=== PATIENT | male | born 1945 | race Caucasian/White ===

== ENCOUNTER 2016-10-18 21:01 | Observation (INO) | payer MEDICARE, OTHER ==
[~2016-10-18] VITALS: Ht 185.4 cm; Wt 97.5 kg
[2016-10-18] MEDS ORDERED: NS IV 1000 ML 1,000 ML IV ONE ×2 (21:13→22:06)
[2016-10-18] MEDS ORDERED: ACETAMINOPHEN 500 MG TAB (TYLENOL) PO PRN ×2 (21:15→23:00)
[2016-10-18 21:20] LABS: BILIRUBIN,URINE NEGATIVE (NEGATIVE); KETONES,URINE 2+ (NEGATIVE); LEUKOCYTE ESTERASE ,URINE NEGATIVE (NEGATIVE); NITRITE,URINE NEGATIVE (NEGATIVE); PH,URINE 6 (5-9); PROTEIN,URINE 3+ (NEGATIVE); UROBILINOGEN,URINE NORMAL (NORMAL)
[2016-10-18 21:20] LABS: BASOPHILS % (AUTO) 0 % (0-10); EOSINOPHILS % (AUTO) 0 % (0-10); LYMPHOCYTES % (AUTO) 10 % (12-44); MEAN CORPUSCULAR HEMOGLOBIN 30 PG (25-34); MEAN CORPUSCULAR HGB CONC 36 G/DL (32-36); MEAN CORPUSCULAR VOLUME 83 FL (80-99); MEAN PLATELET VOLUME 10.4 FL (7.4-10.4); MONOCYTES # (AUTO) 1.5 X 10^3 (0.0-1.0); MONOCYTES % (AUTO) 15 % (0-12); NEUTROPHILS # (AUTO) 7.6 X 10^3 (1.8-7.8); NEUTROPHILS % (AUTO) 75 % (42-75); PLATELET COUNT 232 10^3/uL (130-400); RED BLOOD COUNT 6.14 10^6/uL (4.35-5.85); RED CELL DISTRIBUTION WIDTH 13.7 % (10.0-14.5); WHITE BLOOD COUNT 10.2 10^3/uL (4.3-11.0)
[2016-10-18 21:32] LABS: INR 1.1 (0.8-1.4); PROTHROMBIN TIME PATIENT 13.6 SEC (12.2-14.7)
--- NOTE | 2016-10-18 21:34 | ED General ---
General Chief Complaint: Fever-Adult/Adol Stated Complaint: BILAT LEG WEAKNESS/CONFUSION Nursing Triage Note: PT PRESENTS WITH FEVER, WEAKNESS, AND CONFUSION SINCE APPROX 1800 TONIGHT. REPORTS THAT PT WAS SEEN AT URGENT CARE EARLIER TODAY FOR COUGH. Nursing Sepsis Screen: Possible Severe Sepsis Risk Source of Information: Patient Exam Limitations: No Limitations History of Present Illness Time Seen by Provider: 21:07 Initial Comments Here with family who report that he has been extremely weak and confused tonight. Global weakness. Seen earlier at urgent care and initiated on Tessalon Perles and clarithromycin for a cough. On arrival here, patient answering questions appropriately but is globally weak. He did eat dinner tonight per the . Does complain of cough and sore throat. Timing/Duration: 1-2 Days, Getting Worse Severity: Moderate, Severe Associated Systoms: No Chest Pain, CoughNo Diaphoresis, Fever/ChillsNo Headaches, No Loss of Appetite, MalaiseNo Nausea/Vomiting, No Rash, No Seizure , Shortness of AirNo Syncope, Weakness Allergies and Home Medications Allergies Coded Allergies: No Known Drug Allergies (Unverified , 10/18/16) Constitutional: see HPI chills fever weakness EENTM: nose congestion see HPI Respiratory: see HPI cough short of breath Cardiovascular: see HPINo chest pain, palpitations Gastrointestinal: no symptoms reported Genitourinary: no symptoms reported Musculoskeletal: no symptoms reported Skin: no symptoms reported Psychiatric/Neurological: See HPI All Other Systems Reviewed Negative Unless Noted: Yes Past Cgbpnyd-Jxqecp-Iffaky Hx Patient Social History Alcohol Use: Occasionally Uses Recreational Drug Use: No Smoking Status: Former Smoker Type Used: Cigarettes Recent Foreign Travel: No Contact w/Someone Who Travel: No Recent Infectious Disease Expo: No Recent Hopitalizations: No Physical Abuse Screen: No Sexual Abuse: No Seasonal Allergies Seasonal Allergies: No Surgeries HX Surgeries: Yes Surgeries: Orthopedic Respiratory Hx Respiratory Disorders: No Cardiovascular Hx Cardiac Disorders: No Neurological Hx Neurological Disorders: No Genitourinary Hx Genitourinary Disorders: No Gastrointestinal Hx Gastrointestinal Disorders: No Musculoskeletal Hx Musculoskeletal Disorders: No Endocrine Hx Endocrine Disorders: No HEENT HX ENT Disorders: No Cancer Hx Cancer: No Psychosocial Hx Psychiatric Problems: No Reviewed Nursing Assessment Reviewed/Agree w Nursing PMH: Yes Family Medical History Significant Family History: No Pertinent Family Hx Physical Exam-Suspected Sepsis Physical Exam Vital Signs Vital Sign - Last 12Hours 10/18/16 10/18/16 21:14 21:19 Temp 104.3 Pulse 132 Resp 24 B/P 121/76 Pulse Ox 94 O2 Delivery Room Air O2 Flow Rate 2 Capillary Refill : Less Than 3 Seconds Blood Pressure Mean: 91 General Appearance: Moderate Distress HEENT: PERRL/EOMI Pharyngeal Erythema Other (moderate bilateral nasal congestion with erythema and clear rhinorrhea) Neck: Full Range of Motion Normal Inspection Non Tender Supple Respiratory: No Accessory Muscle Use No Respiratory Distress Crackles (left base)No Wheezing Cardiovascular: No Murmur Tachycardia Gastrointestinal: Non Tender Soft Back: Normal Inspection No CVA Tenderness No Vertebral Tenderness Extremity: Normal Capillary Refill Normal Range of Motion Non Tender No Calf Tenderness Other (weakness bilateral lower extremities) Neurologic/Psychiatric: Alert Oriented x3 Normal Mood/Affect Abnormal Gait ( weakness)No Facial Droop, Motor Weakness Skin: warm/dryNo pallor, No rash, No ulcerations on exposed areas Progress/Results/Core Measures Suspected Sepsis Recent Fever Within 48 Hours: Yes Infection Criteria Present: Suspected New Infection New/Unexplained Altered Menta: Yes Sepsis Screen: Possible Severe Sepsis Risk Sepsis Diagnosis: SIRS Temperature:104.3 Pulse: 132 Respiratory Rate: 24 Laboratory Tests 10/18/16 21:05: White Blood Count 10.2 Blood Pressure 121 /76 Mean: 91 Laboratory Tests 10/18/16 21:05: Creatinine 1.12, INR Comment 1.1, Platelet Count 232, Total Bilirubin 0.4 Results/Orders Lab Results Laboratory Tests Test 10/18/16 21:05 10/18/16 21:12 Range/Units Activated Partial Thromboplast Time 35 24-35 SEC Alanine Aminotransferase (ALT/SGPT) 33 0-55 U/L Albumin 4.1 3.2-4.5 G/DL Alkaline Phosphatase 80 40-136 U/L Anion Gap 13 5-14 MMOL/L Aspartate Amino Transf (AST/SGOT) 32 5-34 U/L BUN/Creatinine Ratio 12 Basophils # (Auto) 0.0 0.0-0.1 10^3/uL Basophils (%) (Auto) 0 0-10 % Blood Urea Nitrogen 13 7-18 MG/DL Calcium Level 8.6 8.5-10.1 MG/DL Carbon Dioxide Level 19 L 21-32 MMOL/L Chloride Level 99 98-107 MMOL/L Creatinine 1.12 0.60-1.30 MG/DL Eosinophils # (Auto) 0.0 0.0-0.3 10^3/uL Eosinophils (%) (Auto) 0 0-10 % Estimat Glomerular Filtration Rate > 60 Glucose Level 199 H 70-105 MG/DL Hematocrit 51 40-54 % Hemoglobin 18.1 H 13.3-17.7 G/DL INR Comment 1.1 0.8-1.4 Lactic Acid Level 2.4 *H 0.5-2.0 MMOL/L Lymphocytes # (Auto) 1.0 1.0-4.0 X 10^3 Lymphocytes (%) (Auto) 10 L 12-44 % Mean Corpuscular Hemoglobin 30 25-34 PG Mean Corpuscular Hemoglobin Concent 36 32-36 G/DL Mean Corpuscular Volume 83 80-99 FL Mean Platelet Volume 10.4 7.4-10.4 FL Monocytes # (Auto) 1.5 H 0.0-1.0 X 10^3 Monocytes (%) (Auto) 15 H 0-12 % Neutrophils # (Auto) 7.6 1.8-7.8 X 10^3 Neutrophils (%) (Auto) 75 42-75 % Platelet Count 232 130-400 10^3/uL Potassium Level 4.2 3.6-5.0 MMOL/L Prothrombin Time 13.6 12.2-14.7 SEC Red Blood Count 6.14 H 4.35-5.85 10^6/uL Red Cell Distribution Width 13.7 10.0-14.5 % Sodium Level 131 L 135-145 MMOL/L Total Bilirubin 0.4 0.1-1.0 MG/DL Total Protein 7.5 6.4-8.2 G/DL White Blood Count 10.2 4.3-11.0 10^3/uL Urine Bacteria NONE /HPF Urine Bilirubin NEGATIVE NEGATIVE Urine Casts NONE /LPF Urine Clarity SLIGHTLY CLOUDY Urine Color YELLOW Urine Crystals NONE /LPF Urine Culture Indicated NO Urine Glucose (UA) 4+ H NEGATIVE Urine Ketones 2+ H NEGATIVE Urine Leukocyte Esterase NEGATIVE NEGATIVE Urine Mucus NEGATIVE /LPF Urine Nitrite NEGATIVE NEGATIVE Urine Protein 3+ H NEGATIVE Urine RBC 5-10 H /HPF Urine RBC (Auto) 4+ H NEGATIVE Urine Specific [place] 1.015 L 1.016-1.022 Urine Urobilinogen NORMAL NORMAL MG/DL Urine WBC NONE /HPF Urine pH 6 5-9 Micro Results Microbiology 10/18/16 Influenza Types A,B Antigen (DAVONTE) - Final, Complete My Orders Orders-ERIKA DE LA ROSA MD Influenza A And B Antigens (10/18/16 21:13) Cbc With Automated Diff (10/18/16 21:13) Comprehensive Metabolic Panel (10/18/16 21:13) Lactic Acid Analyzer (10/18/16 21:13) Blood Culture (10/18/16 21:13) Sputum Culture (10/18/16 21:13) Ua Culture If Indicated (10/18/16 21:13) Protime With Inr (10/18/16 21:13) Partial Thromboplastin Time (10/18/16 21:13) Chest 1 View, Ap/Pa Only (10/18/16 21:13) O2 (10/18/16 21:13) Acetaminophen Tablet (Tylenol Tablet) (10/18/16 21:15) Saline Lock/Iv-Start (10/18/16 21:13) Saline Lock/Iv-Start (10/18/16 21:13) Ekg Tracing (10/18/16 21:13) Vital Signs Adult Sepsis Patie Q1HR (10/18/16 21:13) Remove Rings In Anticipation O (10/18/16 21:13) Ns Iv 1000 Ml (Sodium Chloride 0.9%) (10/18/16 21:13) Oseltamivir 75 Mg (10's) Caps (Tamiflu 7 (10/19/16 09:00) Rx-Oseltamivir Caps (Rx-Tamiflu Caps) (10/18/16 21:51) Ns Iv 1000 Ml (Sodium Chloride 0.9%) (10/18/16 22:06) Medications Given in ED Current Medications Medications Dose Ordered Sig/Trinity Route Start Time Stop Time Status Last Admin Dose Admin Acetaminophen 1000 mg 1,000 mg ONCE PRN PO 10/18/16 21:15 10/18/16 21:27 DC 10/18/16 21:27 1,000 MG Oseltamivir Phosphate 75 mg STK-MED ONCE PO 10/18/16 21:51 10/18/16 22:00 DC 10/18/16 22:04 75 MG Sodium Chloride 1,000 ml @ 0 mls/hr Q0M ONCE IV 1/24/17 21:13 10/18/16 21:16 DC 10/18/16 21:27 0 MLS/HR Vital Signs/I&O Vital Sign - Last 12Hours 10/18/16 10/18/16 21:14 21:19 Temp 104.3 Pulse 132 Resp 24 B/P 121/76 Pulse Ox 94 97 O2 Delivery Room Air Nasal Cannula O2 Flow Rate 2 Capillary Refill : Less Than 3 Seconds Blood Pressure Mean: 91 Progress Note : Progress Note Seen and evaluated. IV, labs, UA, EKG and chest x-ray ordered. Influenza screen done. Patient initiated on O2 as his O2 saturation was 93 percent on room air. This did improve to 95-96 percent on 2 L. Blood cultures and lactic acid ordered. Monitor patient. 2200: Influenza positive. Tamiflu initiated. Case discussed with Dr. NAJERA. He accepts patient for admission, observation status. Repeat normal saline 1 L bolus. We will give 1 more in liter on the floor at 200 mL an hour and then decreased to 150 hour after that. Patient has nodule appearance in the right upper lobe. This was discussed with patient and family. It was also discussed with Dr. NAJERA. He will need either further evaluation inpatient or in the outpatient setting. Patient and family verbalize understanding. ECG Initial ECG Impression Date: Oct 18, 2016 Initial ECG Impression Time: 21:19 Initial ECG Rate: 126 Initial ECG Rhythm: S.Tach Comment Sinus tachycardia with left axis deviation. No previous available for comparison. No evidence of ST elevation AR. Interpreted by me. Diagnostic Imaging Diagonstic Imaging: Xray Plain Films/CT/US/NM/MRI: chest Comments NAME: AMAN MARTIN [facility] REC#: [id number] PT STATUS: REG ER : 1945 PHYSICIAN: ERIKA DE LA ROSA MD ADMIT DATE: 10/18/16/ER Draft Date of Exam:10/18/16 CHEST 1 VIEW, AP/PA ONLY INDICATION: Fever, weakness, and confusion EXAMINATION: Chest 10/18/2016 FINDINGS: There are slightly coarsened bilateral interstitial markings throughout the mid and lower lungs. The heart is towards the upper limits of normal in size and there is pulmonary vascular congestion. There is a vague density superimposed upon the right anterior first rib end. No effusions. No pneumothorax. IMPRESSION: 1. Suspected mild pulmonary edema 2. Vague rounded density in the right upper lung could be superimposed structures but if there are no priors available for comparison, short-term interval followup or even CT on a nonemergent basis could exclude a nodule. Dictated on workstation # [id number] Dict: 10/18/16 2144 Trans: 10/18/16 2150 [id number] Interpreted by: HOLLY VAZQUEZ MD Electronically signed by: Departure Communication Time/Spoke to Admitting Phy: 21:55 Impression Impression: Primary Impression: Influenza Additional Impression: Dehydration Disposition: ADMITTED INPATIENT Condition: Stable Decision to Admit Reason: Admit from ER (General) Decision to Admit/Date: Oct 18, 2016 Time/Decision to Admit Time: 21:55 Departure-Patient Inst. Referrals: NO,LOCAL PHYSICIAN (PCP/Family) Primary Care Physician ERIKA DE LA ROSA MD Oct 18, 2016 21:34
[2016-10-18 21:40] LABS: ALANINE AMINOTRANSFERASE 33 U/L (0-55); ALBUMIN 4.1 G/DL (3.2-4.5); ANION GAP 13 MMOL/L (5-14); ASPARTATE AMINO TRANSFERASE 32 U/L (5-34); BILIRUBIN,TOTAL 0.4 MG/DL (0.1-1.0); BLOOD UREA NITROGEN 13 MG/DL (7-18); BUN/CREATININE RATIO 12; CALCIUM 8.6 MG/DL (8.5-10.1); CARBON DIOXIDE 19 MMOL/L (21-32); CHLORIDE 99 MMOL/L (98-107); CREATININE SERUM 1.12 MG/DL (0.60-1.30); GFR ESTIMATED > 60; GLUCOSE 199 MG/DL (70-105); POTASSIUM 4.2 MMOL/L (3.6-5.0); SODIUM 131 MMOL/L (135-145); TOTAL PROTEIN 7.5 G/DL (6.4-8.2)
--- NOTE | 2016-10-18 21:50 | Diagnostic Imaging Report ---
INDICATION: Fever, weakness, and confusion EXAMINATION: Chest 10/18/2016 FINDINGS: There are slightly coarsened bilateral interstitial markings throughout the mid and lower lungs. The heart is towards the upper limits of normal in size and there is pulmonary vascular congestion. There is a vague density superimposed upon the right anterior first rib end. No effusions. No pneumothorax. IMPRESSION: 1. Suspected mild pulmonary edema 2. Vague rounded density in the right upper lung could be superimposed structures but if there are no priors available for comparison, short-term interval followup or even CT on a nonemergent basis could exclude a nodule. Dictated by: Dictated on workstation # [id number]
[2016-10-18] MEDS ORDERED: RX-OSELTAMIVIR 75 MG (TAMIFLU) BOX OF 10 PO ONE (21:51)
[2016-10-18 23:00] VITALS: BP 123/75
[2016-10-18] MEDS ORDERED: ONDANSETRON 4 MG/2 ML (SDV) Z0FRAN IV PRN (23:00)
[2016-10-18] MEDS ORDERED: IBUPROFEN 800 MG (MOTRIN) TAB PO PRN (23:00)
[2016-10-18] MEDS ORDERED: CATHETER FLUSH 10 ML SYR IV PRN (23:15)
[2016-10-19] MEDS: NS IV 1000 ML 1,000 ML IV SCH ×3 (00:01→14:38)
[2016-10-19 00:37] VITALS: BP 133/62
[2016-10-19 05:20] LABS: BASOPHILS % (AUTO) 0 % (0-10); EOSINOPHILS % (AUTO) 0 % (0-10); LYMPHOCYTES % (AUTO) 23 % (12-44); MEAN CORPUSCULAR HEMOGLOBIN 29 PG (25-34); MEAN CORPUSCULAR HGB CONC 35 G/DL (32-36); MEAN CORPUSCULAR VOLUME 84 FL (80-99); MEAN PLATELET VOLUME 10.5 FL (7.4-10.4); MONOCYTES # (AUTO) 1.3 X 10^3 (0.0-1.0); MONOCYTES % (AUTO) 15 % (0-12); NEUTROPHILS # (AUTO) 5.2 X 10^3 (1.8-7.8); NEUTROPHILS % (AUTO) 61 % (42-75); PLATELET COUNT 207 10^3/uL (130-400); RED BLOOD COUNT 5.38 10^6/uL (4.35-5.85); RED CELL DISTRIBUTION WIDTH 13.7 % (10.0-14.5); WHITE BLOOD COUNT 8.5 10^3/uL (4.3-11.0)
[2016-10-19 05:45] LABS: ALANINE AMINOTRANSFERASE 28 U/L (0-55); ALBUMIN 3.3 G/DL (3.2-4.5); ANION GAP 10 MMOL/L (5-14); ASPARTATE AMINO TRANSFERASE 32 U/L (5-34); BILIRUBIN,TOTAL 0.4 MG/DL (0.1-1.0); BLOOD UREA NITROGEN 11 MG/DL (7-18); BUN/CREATININE RATIO 13; CALCIUM 7.5 MG/DL (8.5-10.1); CARBON DIOXIDE 20 MMOL/L (21-32); CHLORIDE 103 MMOL/L (98-107); CREATININE SERUM 0.82 MG/DL (0.60-1.30); GFR ESTIMATED > 60; GLUCOSE 98 MG/DL (70-105); POTASSIUM 3.6 MMOL/L (3.6-5.0); SODIUM 133 MMOL/L (135-145); TOTAL PROTEIN 5.8 G/DL (6.4-8.2)
[2016-10-19] MEDS: CATHETER FLUSH 10 ML SYR IV SCH ×3 (05:45→20:10)
[2016-10-19 05:46] VITALS: BP 126/60
[2016-10-19] MEDS: inSUlin (REGULAR) HUMAN 1 UNIT/0.01 ML (CHARGE PER UNIT) SC SCH ×2 (06:00→11:00)
[2016-10-19 08:00] VITALS: BP 151/83
[2016-10-19] MEDS ORDERED: FLU TRIvalent (5 YOA+) 2016-17 (AFLURIA) 0.5 ML IM ONE (08:00)
[2016-10-19] MEDS ORDERED: DIPH25CA79 PO (08:01)
[2016-10-19] MEDS: OSELTAMIVIR 75 MG (TAMIFLU) BOX OF 10 PO SCH ×2 (08:42→21:49)
[2016-10-19] MEDS ORDERED: OSELTAMIVIR 75 MG (TAMIFLU) BOX OF 10 PO SCH (09:00)
--- NOTE | 2016-10-19 10:29 | History & Physical-Hospitalist ---
HPI History of Present Illness: HPI/Chief Complaint CC: Cough with fever HPI: This is a 71yoWM pt that was seen at Urgent Care early yesterday. Was diagnosed with bronchitis and placed on antibiotic for cough but then he worsened with severe weakness and confusion and arrived at ER. Pt was found to have influenza A. 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 Patient Interview: Pt states that he feels a little better today, but is still coughing regularly. Pt states that he is coughing up mucus. Pt denies having any pain. Pt does not have a PCP. Pt denies having any previous operations or allergies. Pt denies smoking or drinking ETOH. Pt quit smoking 30 years ago. 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 Scribed by Ced Tavares under the direct supervision of Dr. Peres. Source: patient Exam Limitations: clinical condition (very [place] and appears to have protocol) Date Seen 10/19/16 Attending Physician Ino Phipps MD PCP No,Local Physician Referring Physician Date of Admission Oct 18, 2016 at 22:27 Home Medications & Allergies Home Medications Reviewed patient Home Medication Reconciliation Form Allergies Coded Allergies: No Known Drug Allergies (Unverified , 10/18/16) Past Luhsebb-Mqxvbo-Lvbbam Hx Patient Social History Marrital Status: Employed/Student: retired Alcohol Use: Occasionally Uses Recreational Drug Use: No Smoking Status: Former Smoker Type Used: Cigarettes Physical Abuse Screen: No Sexual Abuse: No Recent Foreign Travel: No Contact w/other who traveled: No Recent Hopitalizations: No Recent Infectious Disease Expo: No Seasonal Allergies Seasonal Allergies: No Surgeries HX Surgeries: Yes Surgeries: Orthopedic Respiratory Hx Respiratory Disorders: No Cardiovascular Hx Cardiovascular Disorders: No Neurological Hx Neurological Disorders: No Genitourinary Hx Genitourinary Disorders: No Gastrointestinal Hx Gastrointestinal Disorders: No Musculoskeletal Hx Musculoskeletal Disorders: No Endocrine Hx Endocrine Disorders: No HEENT HX ENT Disorders: No Cancer Hx Cancer: No Psychosocial Hx Psychiatric Problems: No Reviewed Nursing Assessment Reviewed/Agree w Nursing PMH: Yes Family Medical History Significant Family History: No Pertinent Family Hx Family Hx: Diabetes mellitus 19 MOTHER FH: cancer G8 BROTHER Myocardial infarction 19 FATHER Review of Systems Constitutional: see HPI dizziness fever malaise weakness weight loss EENTM: no symptoms reported Respiratory: cough dyspnea on exertion short of breath Cardiovascular: no symptoms reported Gastrointestinal: no symptoms reported Genitourinary: no symptoms reported Musculoskeletal: no symptoms reported Skin: no symptoms reported Psychiatric/Neurological: No Symptoms Reported All Other Systems Reviewed Negative Unless Noted: Yes Physical Exam Physical Exam Vital Signs Vital Sign - Last 12Hours 10/18/16 10/18/16 21:14 21:19 Temp 104.3 Pulse 132 Resp 24 B/P 121/76 Pulse Ox 94 O2 Delivery Room Air O2 Flow Rate 2 Capillary Refill : Less Than 3 Seconds General Appearance: No Apparent Distress WD/WN Chronically ill Eyes: Bilateral Eye Normal Inspection, Bilateral Eye PERRL HEENT: PERRL/EOMI Normal ENT Inspection Pharynx Normal Neck: Full Range of Motion Normal Inspection Non Tender Supple Carotid Bruit Respiratory: Chest Non Tender No Respiratory Distress Crackles Decreased Breath Sounds Rales Wheezing Cardiovascular: Regular Rate, Rhythm No Edema No Gallop No JVD No Murmur Normal Peripheral Pulses Gastrointestinal: Normal Bowel Sounds No Organomegaly No Pulsatile Mass Non Tender Soft Back: Normal Inspection No CVA Tenderness No Vertebral Tenderness Extremity: Normal Capillary Refill Normal Inspection Normal Range of Motion Non Tender No Calf Tenderness No Pedal Edema Neurologic/Psychiatric: Alert Oriented x3 No Motor/Sensory Deficits Depressed Affect Skin: Normal Color Warm/Dry Lymphatic: No Adenopathy Results Results/Procedures Lab Laboratory Tests 10/18/16 21:05 10/19/16 04:33 Assessment/Plan Admission Diagnosis Assessment: Acute influenza A with sepsis, fever and cough placed on Tamaflu Hyponatremia likely due to influenza Elevated lactic acid Lung mass and former smoker Dehydration with Hgb 18.1 now resolved Assessment and Plan Plan: CT chest with contrast due to lung mass Fluid restriction Check labs SCD's Tamiflu Clinical Quality Measures DVT/VTE Risk/Contraindication: Risk Factor Score Per Nursin RFS Level Per Nursing on Admit: 4+=Very High LANEDN PERES DO Oct 19, 2016 10:29
[2016-10-19] MEDS ORDERED: IOHEXOL 350 MG/ML 100 ML (OMNIPAQUE 350) VIAL IV ONE (12:15)
[2016-10-19] MEDS ORDERED: NS 100 ML (IVPB) BAG IV ONE (12:15)
--- NOTE | 2016-10-19 13:54 | Diagnostic Imaging Report ---
PROCEDURE: CT chest with contrast only. TECHNIQUE: Multiple contiguous axial images were obtained through the chest after administration of intravenous contrast. INDICATION: Congestion, cough, questionable right upper lobe nodule versus superimposition artifact. CT performed as further evaluation. FINDINGS: There is asymmetric ossifications of the right greater than left distal first rib costal cartilage believed to account for the radiographic density in question. There was no evidence for lung mass. There are no findings of acute pneumonia. No bronchiectasis. The central airways however are slightly thickened and may reflect an element of bronchitis or viral pattern. No alveolar consolidation. No suspicious lung mass. No hilar, mediastinal or axillary lymphadenopathy. There is no pleural or pericardial effusion. No acute soft tissue or osseous chest wall disease. IMPRESSION: Asymmetric first rib costochondral calcifications on the right are believed to account for the radiographic density. No evidence for suspicious lung mass or adenopathy. There is some slight thickening of the central airways raises the question of an element of bronchial inflammation but no willian pneumonia. Dictated by: Dictated on workstation # [id number]
[2016-10-19 16:40] VITALS: BP 127/72
[2016-10-20] VITALS: BP 136/70
[2016-10-20] MEDS: NS IV 1000 ML 1,000 ML IV SCH (02:18)
[2016-10-20] MEDS: CATHETER FLUSH 10 ML SYR IV SCH (06:00)
[2016-10-20 08:00] VITALS: BP 132/77
[2016-10-20] MEDS: OSELTAMIVIR 75 MG (TAMIFLU) BOX OF 10 PO SCH (08:37)
[2016-10-20] MEDS ORDERED: OSLT75C PO (09:33)
--- NOTE | 2016-10-20 09:35 | Discharge Instructions ---
Discharge Instructions Discharge Medications New, Converted or Re-Newed RX: Other New Medications: Oseltamivir Phosphate (Tamiflu) 75 Mg Cap 0 EACH PO BID Days 4 CAP Continued Medications: Diphenhydramine HCl (Benadryl) 25 Mg Capsule 25 MG PO HS CAP Patient Instructions Goal/Follow Up Appt: Obtain primary care provider for follow up care Activity & Diet Discharge Diet: No Restrictions Activity as Tolerated: Yes LANDEN BRUMFIELD DO Oct 20, 2016 09:35
--- NOTE | 2016-10-20 09:36 | Discharge Summary-Hospitalist ---
Diagnosis/Chief Complaint Date of Admission Oct 18, 2016 at 22:50 Date of Discharge Discharge Date: Oct 20, 2016 Admission Diagnosis Assessment: Acute influenza A with sepsis, fever and cough placed on Tamaflu Hyponatremia likely due to influenza Elevated lactic acid Lung mass and former smoker Dehydration with Hgb 18.1 now resolved Discharge Diagnosis Assessment: Acute influenza A with sepsis, fever and cough placed on Tamaflu Hyponatremia likely due to influenza Elevated lactic acid Lung mass and former smoker Dehydration with Hgb 18.1 now resolved Plan: CT chest with contrast due to lung mass Fluid restriction Check labs SCD's Tamiflu Reason Hospital Visit/Course CC: Cough with fever HPI: This is a 71yoWM pt that was seen at Urgent Care early yesterday. Was diagnosed with bronchitis and placed on antibiotic for cough but then he worsened with severe weakness and confusion and arrived at ER. Pt was found to have influenza A. 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 Patient Interview: Pt states that he feels a little better today, but is still coughing regularly. Pt states that he is coughing up mucus. Pt denies having any pain. Pt does not have a PCP. Pt denies having any previous operations or allergies. Pt denies smoking or drinking ETOH. Pt quit smoking 30 years ago. 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 Scribed by Ced Tavares under the direct supervision of Dr. Peres. Note from 10/20/16: Patient doing very well no longer feverish or coughing as frequent Tamiflu will be completed at discharge Eating and drinking well and bowels are moving Very of hard of hearing making it a little more difficult for communication Declines primary care provider establishment No fever, vital signs stable, pleasant, oriented 3, very hard of hearing Regular rate and rhythm, third on station bilaterally no wheezing noted today No edema Hospital course: Patient had an uneventful hospital course he was admitted for acute influenza A and fever with hyponatremia and confusion and weakness. CT scan of the lung region was completed due to questionable mass on chest x-ray but that revealed no evidence of any mass or infiltrate. Overall he did well through the entire hospital course was maintain on IV fluids for dehydration on admission and overall was able to be discharged in improved status on 10/20/16. Discharge Summary Discharge Physical Examination Allergies: Coded Allergies: No Known Drug Allergies (Unverified , 10/18/16) Vitals & I&Os Vital Signs Date Time Temp Pulse Resp B/P Pulse Ox O2 Delivery O2 Flow Rate FiO2 10/20/16 09:00 Room Air 10/20/16 08:20 92 10/20/16 08:00 98.7 78 20 132/77 10/19/16 09:00 2.00 Hospital Course Labs (last 24 hrs) Microbiology 10/18/16 Blood Culture - Preliminary, Resulted No growth 10/18/16 Influenza Types A,B Antigen (DAVONTE) - Final, Complete Discharge Home Medications: Active Scripts Active Tamiflu (Oseltamivir Phosphate) 75 Mg Cap 0 Each PO BID 4 Days Reported Benadryl (Diphenhydramine HCl) 25 Mg Capsule 25 Mg PO HS Instructions to patient/family Please see electonic discharge instructions given to patient. Clinical Quality Measures DVT/VTE Risk/Contraindication: Risk Factor Score Per Nursin RFS Level Per Nursing on Admit: 4+=Very High LANDEN PERES DO Oct 20, 2016 09:36
[2016-10-20] MEDS ORDERED: OSELTAMIVIR 75 MG (TAMIFLU) BOX OF 10 PO SCH (10:15)
[2016-10-20] MEDS ORDERED: RELABEL FOR HOME USE MC SCH (10:15)
== END 2016-10-20 09:33 | disposition home or self-care (01) ==
LOC: EDUNIT# 21:01 → ER 21:03 → UNDOADMOB 22:27 → 4TH 22:27
PROVIDERS: ADMIT Internal Medicine; ATTEND Internal Medicine
DX: J11.1 Influenza due to unidentified influenza virus with other respiratory manifestations (principal); E87.6 Hypokalemia; E86.0 Dehydration; R91.8 Other nonspecific abnormal finding of lung field; Z87.891 Personal history of nicotine dependence; Z23 Encounter for immunization
CPT/HCPCS: 36415; 51701; 71010; 71260; 80053; 81000; 83605; 85025; 85610; 85730; 87040; 87804; 93005; 94760; 96360; G0378

== ENCOUNTER 2018-08-23 23:41 | Observation (INO) | payer MEDICARE, OTHER ==
[~2018-08-23] VITALS: Ht 182.9 cm; Wt 97.5 kg
[~2018-08-23 23:41] MED LIST: DIPH25CA79 PO; OSLT75C PO
[2018-08-23] MEDS: NITROGLYCERIN 0.4 MG SL TABS BTL 25'S SL PRN (23:53)
[2018-08-23 23:58] LABS: BASOPHILS # (AUTO) 0.1 10^3/uL (0.0-0.1); BASOPHILS % (AUTO) 1 % (0-10); EOSINOPHILS # (AUTO) 0.3 10^3/uL (0.0-0.3); EOSINOPHILS % (AUTO) 4 % (0-10); HEMATOCRIT 53 % (40-54); HEMOGLOBIN 18.1 G/DL (13.3-17.7); LYMPHOCYTES # (AUTO) 4.1 X 10^3 (1.0-4.0); LYMPHOCYTES % (AUTO) 48 % (12-44); MEAN CORPUSCULAR HEMOGLOBIN 29 PG (25-34); MEAN CORPUSCULAR HGB CONC 34 G/DL (32-36); MEAN CORPUSCULAR VOLUME 85 FL (80-99); MEAN PLATELET VOLUME 10.2 FL (7.4-10.4); MONOCYTES # (AUTO) 1.4 X 10^3 (0.0-1.0); MONOCYTES % (AUTO) 16 % (0-12); NEUTROPHILS # (AUTO) 2.6 X 10^3 (1.8-7.8); NEUTROPHILS % (AUTO) 31 % (42-75); PLATELET COUNT 255 10^3/uL (130-400); RED BLOOD COUNT 6.22 10^6/uL (4.35-5.85); RED CELL DISTRIBUTION WIDTH 13.4 % (10.0-14.5); WHITE BLOOD COUNT 8.5 10^3/uL (4.3-11.0)
[2018-08-24] VITALS (11 sets, daily range): BP systolic 128–159; BP diastolic 75–86
[2018-08-24] MEDS ORDERED: ASPIRIN 81 MG CHEW (CHILDREN'S ASA) PO ONE
--- NOTE | 2018-08-24 00:01 | ED Chest Pain ---
General Chief Complaint: Chest Pain Stated Complaint: CP Source: patient Exam Limitations: no limitations History of Present Illness Date Seen by Provider: Aug 23, 2018 Time Seen by Provider: 23:45 Initial Comments Here with report of acute onset of central low chest pain that began between 9 and 10 p.m. and persisted until now. Pain waxes and wanes and is described as an ache or pressure. He tried some Tums and that did not help. He's never had pain like this before. Denies previous medical problems and does not take any medicines. Does not have a doctor that he follows with regularly because he is never been really sick. Timing/Duration: 1-3 hours, changing over time Severity/Quality: moderate, aching, pressure Location: central Radiation: no radiation Activities at Onset: none Prior CP/Workup: no prior chest pain, no prior cardiac workup ASA po [employer] TEACHER: No NTG SL [employer]ING[employer]CHO[employer] TEACHER: No Associated Symptoms: No abdominal pain, No back pain, No diaphoresis, No fever/ chills; nausea/vomiting; No shortness of breath, No weakness Allergies and Home Medications Allergies Coded Allergies: No Known Drug Allergies (Unverified , 10/18/16) Patient Home Medication List Home Medication List Reviewed: Yes Review of Systems Review of Systems Constitutional: see HPI; No chills, No fever EENTM: No Symptoms Reported Respiratory: Denies Cough, Denies Shortness of Air Cardiovascular: Denies Edema, Denies Lightheadedness, Denies Palpitations Gastrointestinal: Denies Diarrhea; Nausea, Vomiting Genitourinary: No Symptoms Reported Musculoskeletal: no symptoms reported Skin: no symptoms reported All Other Systems Reviewed Negative Unless Noted: Yes Past Whdalex-Luijqz-Xcqdtw Hx Past Med/Social Hx: Reviewed Nursing Past Med/Soc Hx Patient Social History Alcohol Use: Denies Use Number of Drinks Today: AA Alcohol Beverage of Choice: Beer Recreational Drug Use: No Smoking Status: Former Smoker Type Used: Cigarettes Former Smoker, Quit: Sep 25, 1986 Recent Foreign Travel: No Contact w/Someone Who Travel: No Recent Hopitalizations: No Seasonal Allergies Seasonal Allergies: No Past Medical History Surgeries: Yes Orthopedic Respiratory: No (INFLUENZA A 10/18/16) Cardiac: No Neurological: No Genitourinary: No Gastrointestinal: No Musculoskeletal: No Endocrine: No HEENT: No (GLASSES) Cancer: No Psychosocial: No Integumentary: No Blood Disorders: No Family Medical History Reviewed Nursing Family Hx Diabetes mellitus 19 MOTHER FH: cancer G8 BROTHER Myocardial infarction 19 FATHER Heart Disease, Cancer, Diabetes Physical Exam Vital Signs Vital Signs - First Documented 08/23/18 23:43 Temp 97.2 Pulse 75 Resp 19 B/P (MAP) 182/97 (125) O2 Delivery Room Air Capillary Refill : Less Than 3 Seconds Height, Weight, BMI Height: 6'1.00" Weight: 215lbs. 0.0oz. [id number]; 28.4 BMI Method:Stated General Appearance: No Apparent Distress, WD/WN HEENT: PERRL/EOMI, Pharynx Normal Neck: Non Tender, Supple Respiratory: Lungs Clear, Normal Breath Sounds Cardiovascular: Regular Rate, Rhythm, No Murmur Gastrointestinal: Non Tender, Soft Extremity: Normal Inspection, Normal Range of Motion, Non Tender, No Calf Tenderness Neurologic/Psychiatric: Alert, Oriented x3 Skin: Normal Color, Warm/Dry Progress/Results/Core Measures Results/Orders Lab Results Laboratory Tests Test 08/23/18 23:49 Range/Units White Blood Count 8.5 4.3-11.0 10^3/uL Red Blood Count 6.22 H 4.35-5.85 10^6/uL Hemoglobin 18.1 H 13.3-17.7 G/DL Hematocrit 53 40-54 % Mean Corpuscular Volume 85 80-99 FL Mean Corpuscular Hemoglobin 29 25-34 PG Mean Corpuscular Hemoglobin Concent 34 32-36 G/DL Red Cell Distribution Width 13.4 10.0-14.5 % Platelet Count 255 130-400 10^3/uL Mean Platelet Volume 10.2 7.4-10.4 FL Neutrophils (%) (Auto) 31 L 42-75 % Lymphocytes (%) (Auto) 48 H 12-44 % Monocytes (%) (Auto) 16 H 0-12 % Eosinophils (%) (Auto) 4 0-10 % Basophils (%) (Auto) 1 0-10 % Neutrophils # (Auto) 2.6 1.8-7.8 X 10^3 Lymphocytes # (Auto) 4.1 H 1.0-4.0 X 10^3 Monocytes # (Auto) 1.4 H 0.0-1.0 X 10^3 Eosinophils # (Auto) 0.3 0.0-0.3 10^3/uL Basophils # (Auto) 0.1 0.0-0.1 10^3/uL Prothrombin Time 13.6 12.2-14.7 SEC INR Comment 1.0 0.8-1.4 Activated Partial Thromboplast Time 37 H 24-35 SEC D-Dimer 1.12 H 0.00-0.49 UG/ML Sodium Level 135 135-145 MMOL/L Potassium Level 3.8 3.6-5.0 MMOL/L Chloride Level 98 98-107 MMOL/L Carbon Dioxide Level 26 21-32 MMOL/L Anion Gap 11 5-14 MMOL/L Blood Urea Nitrogen 11 7-18 MG/DL Creatinine 0.89 0.60-1.30 MG/DL Estimat Glomerular Filtration Rate > 60 BUN/Creatinine Ratio 12 Glucose Level 144 H 70-105 MG/DL Calcium Level 10.2 H 8.5-10.1 MG/DL Corrected Calcium 10.0 8.5-10.1 MG/DL Magnesium Level 2.3 1.8-2.4 MG/DL Total Bilirubin 0.6 0.1-1.0 MG/DL Aspartate Amino Transf (AST/SGOT) 26 5-34 U/L Alanine Aminotransferase (ALT/SGPT) 36 0-55 U/L Alkaline Phosphatase 111 40-136 U/L Myoglobin 38.4 10.0-92.0 NG/ML Troponin I < 0.30 <0.30 NG/ML Total Protein 8.0 6.4-8.2 GM/DL Albumin 4.3 3.2-4.5 GM/DL Amylase Level 64 25-125 U/L Lipase 37 8-78 U/L My Orders Orders - ERIKA DE LAR OSA MD Cbc With Automated Diff (08/23/18 23:49) Magnesium (08/23/18 23:49) Chest 1 View, Ap/Pa Only (08/23/18 23:49) Ekg Tracing (08/23/18 23:49) Cardiac Profile 1 (08/23/18:49) Comprehensive Metabolic Panel (08/23/18 23:49) Myoglobin Serum (08/23/18 23:49) Protime With Inr (08/23/18 23:49) Partial Thromboplastin Time (08/23/18:49) O2 (08/23/18 23:49) Monitor-Rhythm Ecg Trace Only (08/23/18 23:49) Lipid Panel (08/24/18 06:00) Aspirin Chewable Tablet (Baby Aspirin Ch (08/24/18 00:00) Nitroglycerin 0.4 Mg Btl 25's (Nitrostat (08/24/18 00:00) Saline Lock/Iv-Start (08/23/18 23:49) Lipase (08/23/18 23:49) Amylase (08/23/18 23:49) Fibrin Degradation Products (08/23/18 23:49) Ns Iv 1000 Ml (Sodium Chloride 0.9%) (08/24/18 00:26) Ct Angio Chest W (08/24/18 00:26) Iohexol Injection (Omnipaque 350 Mg/Ml 1 (08/24/18 00:30) Contrast Received (Contrast Received) (08/24/18 00:30) Ns (Ivpb) (Sodium Chloride 0.9%) (08/24/18 00:30) Metoprolol Succinate (Xl) Tab (Toprol Xl (08/24/18 01:45) Enoxaparin Injection (Lovenox Injection) (08/24/18 01:45) Medications Given in ED Current Medications Medications Dose Ordered Sig/Trinity Route Start Time Stop Time Status Last Admin Dose Admin Aspirin 324 mg ONCE ONCE PO 08/24/18 00:00 08/24/18 00:01 DC 08/23/18 23:52 324 MG Iohexol 125 ml ONCE ONCE IV 08/24/18 00:30 08/24/18 00:31 DC 08/24/18 00:44 125 ML Nitroglycerin 0.4 mg UD PRN SL 08/24/18 00:00 08/24/18 00:12 DC 08/24/18 00:10 0.4 MG Sodium Chloride 250 ml ONCE ONCE IV 08/24/18 00:30 08/24/18 00:31 DC 08/24/18 00:44 80 ML Sodium Chloride 1,000 ml @ 0 mls/hr Q0M ONCE IV 08/24/18 00:26 08/24/18 00:27 DC 08/24/18 00:59 55 MLS/HR Vital Signs/I&O 08/23/18 08/23/18 23:43 23:43 Temp 97.2 Pulse 75 Resp 19 B/P (MAP) 182/97 (125) O2 Delivery Room Air Progress Progress Note : Progress Note Seen and evaluated. IV, labs, EKG and chest x-ray ordered. ASA 324 mg by mouth ordered. Nitroglycerin sublingual ordered. Monitor patient. Initial ECG Impression Date: Aug 23, 2018 Initial ECG Impression Time: 23:42 Initial ECG Rate: 78 Initial ECG Rhythm: Normal Sinus Initial ECG Comparisson: Unchanged Comment Sinus rhythm with left axis deviation. Left anterior fascicular block as well as incomplete right bundle branch block noted. Similar to previous of 18 October 2016. No evidence of ST elevation [place]. Interpreted by me. 0001: CT angiogram of the chest ordered due to elevated d-dimer. 0130: CT does not show pulmonary emboli. Pain remains resolved after 3 nitroglycerin. I discussed the case with Dr. Peres and she accepts patient for admission, observation status. I discussed the case with Dr. Stephens and he accepts patient in consult. We will give Lovenox 1 mg/kg dosing as well as Toprol-XL 25 mg by mouth. Further evaluation in the morning by cardiology. This was discussed with patient and family who agree with plan. Diagnostic Imaging Diagonstic Imaging: Xray Plain Films/CT/US/NM/MRI: chest Comments No acute findings Reviewed: Reviewed by Me Diagonstic Imaging: CT Plain Films/CT/US/NM/MRI: chest Comments CT angiogram of the chest shows COPD with no evidence of pneumonia, effusion or pulmonary emboli. Very small hiatal hernia. Mostly enhancing subscapular splenic mass measures 3 cm x 2 cm x 3.3 cm. Unchanged from 10/19/16. Reviewed: [facility] Reviewed by Me Departure Communication (Admissions) Time/Spoke to Admitting Phy: 01:30 Time/Spoke to Consulting Phy: 01:27 Impression Primary Impression: Chest pain Qualified Codes: R07.9 - Chest pain, unspecified Disposition: 09 ADMITTED INPATIENT Condition: Stable Admissions Decision to Admit Reason: Admit from ER (General) Decision to Admit/Date: Aug 24, 2018 Time/Decision to Admit Time: 01:27 Departure-Patient Inst. Referrals: NO,LOCAL PHYSICIAN (PCP/Family) Primary Care Physician ERIKA DE LA ROSA MD Aug 24, 2018 00:01
[2018-08-24] MEDS: NITROGLYCERIN 0.4 MG SL TABS BTL 25'S SL PRN ×2 (00:10)
[2018-08-24 00:11] LABS: FIBRIN DEGRADATION PRODUCTS 1.12 UG/ML (0.00-0.49); PROTHROMBIN TIME PATIENT 13.6 SEC (12.2-14.7)
[2018-08-24 00:19] LABS: MYOGLOBIN SERUM 38.4 NG/ML (10.0-92.0)
[2018-08-24 00:21] LABS: ALANINE AMINOTRANSFERASE 36 U/L (0-55); ALBUMIN 4.3 GM/DL (3.2-4.5); ALKALINE PHOSPHATASE 111 U/L (40-136); AMYLASE 64 U/L (25-125); BILIRUBIN,TOTAL 0.6 MG/DL (0.1-1.0); BUN/CREATININE RATIO 12; CALCIUM 10.2 MG/DL (8.5-10.1); CARBON DIOXIDE 26 MMOL/L (21-32); CHLORIDE 98 MMOL/L (98-107); CREATININE SERUM 0.89 MG/DL (0.60-1.30); GFR ESTIMATED > 60; GLUCOSE 144 MG/DL (70-105); LIPASE 37 U/L (8-78); MAGNESIUM 2.3 MG/DL (1.8-2.4); POTASSIUM 3.8 MMOL/L (3.6-5.0); SODIUM 135 MMOL/L (135-145)
[2018-08-24] MEDS ORDERED: NS IV 1000 ML 1,000 ML IV ONE (00:26)
[2018-08-24] MEDS ORDERED: NS 250 ML (IVPB) BAG IV ONE (00:30)
[2018-08-24] MEDS ORDERED: RECEIVED CONTRAST (Hold Metformin) IV SCH (00:30)
[2018-08-24] MEDS ORDERED: IOHEXOL 350 MG/ML 150 ML (OMNIPAQUE 350) VIAL IV ONE (00:30)
[2018-08-24] MEDS ORDERED: ENOXAPARIN 100 MG/1 ML (LOVENOX) SYR SC ONE (01:45)
[2018-08-24] MEDS ORDERED: NS IV 1000 ML 1,000 ML ONE (03:15)
[2018-08-24] MEDS ORDERED: NS IV 1000 ML 1,000 ML IV SCH (05:30)
[2018-08-24] MEDS ORDERED: ONDANSETRON 4 MG/2 ML (SDV) Z0FRAN IV PRN (05:30)
[2018-08-24] MEDS ORDERED: morphine INJ 4 MG/ML 1 ML (VIAL/SYRINGE) IV PRN (05:30)
[2018-08-24] MEDS ORDERED: NITROGLYCERIN 0.4 MG SL TABS BTL 25'S SL PRN (05:30)
[2018-08-24 06:23] LABS: CHOLESTEROL 111 MG/DL (< 200); HDL CHOLESTEROL 25 MG/DL (40-60); TRIGLYCERIDES 84 MG/DL (<150); VLDL CHOLESTEROL 17 MG/DL (5-40)
[2018-08-24 06:30] LABS: CARDIAC PROFILE 2 < 0.30 NG/ML (<0.30); MYOGLOBIN SERUM 40.2 NG/ML (10.0-92.0)
--- NOTE | 2018-08-24 06:30 | Diagnostic Imaging Report ---
Clinical indication: Patient with chest pain. Exam: Portable chest x-ray upright view. Comparisons: Chest x-ray dated 10/18/2016. Findings: Lungs/pleura: There is minimal atelectasis or scarring in the left lung base. Lungs are clear. There is no pneumothorax. There is no pleural effusion. Mediastinum: Unremarkable. Pulmonary vasculature: Unremarkable. Heart: Unremarkable. Bones/extrathoracic soft tissue: There are degenerative spurs involving the thoracic spine. Impression: There is no radiographic evidence of acute cardiopulmonary process. Dictated by: Dictated on workstation # [id number]
[2018-08-24] MEDS ORDERED: FLU QUADRIvalent (5+ YOA) 2018-2019 (AFLURIA) 0.5 ML IM ONE (07:00)
--- NOTE | 2018-08-24 07:16 | Diagnostic Imaging Report ---
PROCEDURE: CT angiography of the chest with contrast. TECHNIQUE: Multiple contiguous axial images were obtained through the chest after uneventful bolus administration of intravenous contrast. 2D reconstructed CTA MIP acquisitions were also performed. INDICATION: Chest pain for 1 to 2 hours. Episode of vomiting. COMPARISON: 10/19/2016 FINDINGS: The pulmonary arteries demonstrate no filling defect to reflect pulmonary embolism. Heart size borderline. Thoracic aorta with very mild atheromatous changes. No aneurysm or dissection. There is no pathologically enlarged mediastinal and/or hilar lymph nodes. Small hiatal hernia present. Lung martin are hyperinflated with a few scattered areas of peripheral subpleural emphysematous change. Slightly greater involvement of the upper lobes. No definitive suspicious mass lesion. No significant consolidating infiltrate. No significant pleural effusion. Enhancing mass subcapsular anterior spleen measures 3 x 2 x 3.3 cm. It was present on the prior study and relatively stable, may reflect a potential hemangioma. The visualized osseous structures demonstrate no acute findings. IMPRESSION: 1. No CTA evidence for pulmonary embolism or otherwise acute abnormality of the chest. 2. Changes reflecting likely COPD. No evidence for pneumonia. 3. Relatively stable splenic mass anterior subcapsular region. A preliminary report was provided by [facility]. Dictated by: Dictated on workstation # [id number]
--- NOTE | 2018-08-24 07:19 | Consultation-Cardiology ---
HPI-Cardiology Cardiology Consultation Date of Consultation 08/24/18 Date of Admission Time Seen by Provider: 07:17 Indication: Chest pain HPI 72 years old gentleman with no significant past medical history, family history of heart disease, has been having chest pain on and off for about a year. Yesterday started having dull achiness in the retrosternal area persisted until he came to the emergency room, required multiple doses of sublingual nitroglycerin and he felt better since then no further episodes of chest pain. Denied any palpitation, syncope or near syncopal episodes, denied any shortness of breath. Does not take any medication, denied any smoking. Currently feeling better. Home Medications & Allergies Allergies: Coded Allergies: No Known Drug Allergies (Unverified , 10/18/16) Home Medication List Reviewed: Yes OFE-Fpkuru-Ebsfmg Hx Patient Social History Marital Status: Employed/Student: employed Alcohol Use: Denies Use Recreational Drug Use: No Smoking Status: Former Smoker Type Used: Cigarettes Recent Foreign Travel: No Recent Infectious Disease Expo: No Recent Hopitalizations: No Physical Abuse Screen: No Sexual Abuse: No Past Medical History No known past medical history Family Medical History Significant Family History: Heart Disease, Cancer, Diabetes Family History: Diabetes mellitus 19 MOTHER FH: cancer G8 BROTHER Myocardial infarction 19 FATHER Review of Systems Constitutional: no symptoms reported, see HPI EENTM: see HPI, no symptoms reported Respiratory: see HPI; No cough, No dyspnea on exertion, No hemoptysis, No orthopnea, No phlegm, No short of breath, No stridor, No wheezing, No other Cardiovascular: see HPI, chest pain; No edema, No Hx of Intervention, No palpitations, No syncope, No vascular heart diseas, No other Gastrointestinal: no symptoms reported, see HPI Genitourinary: no symptoms reported, see HPI Musculoskeletal: no symptoms reported, see HPI Skin: no symptoms reported, see HPI Psychiatric/Neurological: No Symptoms Reported, See HPI Reviewed Test Results Reviewed Test Results Lab Laboratory Tests Test 08/23/18 23:49 08/24/18 05:30 Range/Units White Blood Count 8.5 4.3-11.0 10^3/uL Red Blood Count 6.22 H 4.35-5.85 10^6/uL Hemoglobin 18.1 H 13.3-17.7 G/DL Hematocrit 53 40-54 % Mean Corpuscular Volume 85 80-99 FL Mean Corpuscular Hemoglobin 29 25-34 PG Mean Corpuscular Hemoglobin Concent 34 32-36 G/DL Red Cell Distribution Width 13.4 10.0-14.5 % Platelet Count 255 130-400 10^3/uL Mean Platelet Volume 10.2 7.4-10.4 FL Neutrophils (%) (Auto) 31 L 42-75 % Lymphocytes (%) (Auto) 48 H 12-44 % Monocytes (%) (Auto) 16 H 0-12 % Eosinophils (%) (Auto) 4 0-10 % Basophils (%) (Auto) 1 0-10 % Neutrophils # (Auto) 2.6 1.8-7.8 X 10^3 Lymphocytes # (Auto) 4.1 H 1.0-4.0 X 10^3 Monocytes # (Auto) 1.4 H 0.0-1.0 X 10^3 Eosinophils # (Auto) 0.3 0.0-0.3 10^3/uL Basophils # (Auto) 0.1 0.0-0.1 10^3/uL Prothrombin Time 13.6 12.2-14.7 SEC INR Comment 1.0 0.8-1.4 Activated Partial Thromboplast Time 37 H 24-35 SEC D-Dimer 1.12 H 0.00-0.49 UG/ML Sodium Level 135 135-145 MMOL/L Potassium Level 3.8 3.6-5.0 MMOL/L Chloride Level 98 98-107 MMOL/L Carbon Dioxide Level 26 21-32 MMOL/L Anion Gap 11 5-14 MMOL/L Blood Urea Nitrogen 11 7-18 MG/DL Creatinine 0.89 0.60-1.30 MG/DL Estimat Glomerular Filtration Rate > 60 BUN/Creatinine Ratio 12 Glucose Level 144 H 70-105 MG/DL Calcium Level 10.2 H 8.5-10.1 MG/DL Corrected Calcium 10.0 8.5-10.1 MG/DL Magnesium Level 2.3 1.8-2.4 MG/DL Total Bilirubin 0.6 0.1-1.0 MG/DL Aspartate Amino Transf (AST/SGOT) 26 5-34 U/L Alanine Aminotransferase (ALT/SGPT) 36 0-55 U/L Alkaline Phosphatase 111 40-136 U/L Myoglobin 38.4 40.2 10.0-92.0 NG/ML Troponin I < 0.30 < 0.30 <0.30 NG/ML Total Protein 8.0 6.4-8.2 GM/DL Albumin 4.3 3.2-4.5 GM/DL Amylase Level 64 25-125 U/L Lipase 37 8-78 U/L Triglycerides Level 84 <150 MG/DL Cholesterol Level 111 < 200 MG/DL LDL Cholesterol Direct 80 1-129 MG/DL VLDL Cholesterol 17 5-40 MG/DL HDL Cholesterol 25 L 40-60 MG/DL Physical Exam Vital Signs Vital Signs - First Documented 08/23/18 08/24/18 23:43 01:57 Temp 97.2 Pulse 75 Resp 19 B/P (MAP) 182/97 (125) Pulse Ox 98 O2 Delivery Room Air Capillary Refill : Less Than 3 Seconds Height, Weight, BMI Height: 6'0.00" Weight: 215lbs. 0.0oz. 97.557481ke; 29.2 BMI Method:Stated General Appearance: No Apparent Distress, WD/WN Eyes: Bilateral Eye Normal Inspection, Bilateral Eye PERRL, Bilateral Eye EOMI HEENT: PERRL/EOMI, TMs Normal, Normal ENT Inspection, Pharynx Normal Neck: Full Range of Motion, Normal Inspection, Non Tender, Supple, Carotid Bruit Respiratory: Chest Non Tender, Lungs Clear, Normal Breath Sounds, No Accessory Muscle Use, No Respiratory Distress Cardiovascular: Regular Rate, Rhythm, No Edema, No Gallop, No JVD, No Murmur, Normal Peripheral Pulses Gastrointestinal: Normal Bowel Sounds, No Organomegaly, No Pulsatile Mass, Non Tender, Soft Back: Normal Inspection, No CVA Tenderness, No Vertebral Tenderness Extremity: Normal Capillary Refill, Normal Inspection, Normal Range of Motion, Non Tender, No Calf Tenderness, No Pedal Edema Neurologic/Psychiatric: Alert, Oriented x3, No Motor/Sensory Deficits, Normal Mood/Affect Skin: Normal Color, Warm/Dry Lymphatic: No Adenopathy A/P-Cardiology Admission Diagnosis Chest pain nonspecific etiology Hypertension Family history of heart disease Assessment/Plan Chest pain nonspecific etiology, resembling angina. EKG did not show any acute changes, cardiac enzymes were negative. Currently chest pain-free, planning to evaluate stress test today. Hypertension, no previous history of hypertension, I'll monitor blood pressure, given one dose of Toprol in the emergency room. Family history of heart disease History of pleurisy. Addendum on August 24, 2018 825 a.m. Patient underwent exercise stress echo, was able to exercise for 3 minutes on standard Alex protocol achieving 85 percent of maximum expected heart rate. No ischemic changes on EKG, echocardiographic images showed no ischemic changes. Okay for discharge from cardiology standpoint, continue on Toprol as an outpatient Clinical Quality Measures AMI/AHF: ASA po Prior to arrival: No DVT/VTE Risk/Contraindication: Risk Factor Score Per Nursin RFS Level Per Nursing on Admit: 3=High NILA EISENBERG MD Aug 24, 2018 07:19
[2018-08-24] MEDS ORDERED: METO-387 PO (08:26)
--- NOTE | 2018-08-24 08:30 | Clinic Account Progress/Dx ---
Clinic Account Progress/Dx DIAGNOSIS: Date Seen by Provider: Aug 24, 2018 Time Seen by Provider: 08:30 Chest pain Pleurisy Hypertension Family history of heart disease NILA EISENBERG MD Aug 24, 2018 08:30
--- NOTE | 2018-08-24 08:52 | History & Physical-Hospitalist ---
History of Present Illness HPI/Chief Complaint Not seen prior to DC, Cardiology DC patient Date Seen 08/24/18 Time Seen by a Provider: 00:00 Attending Physician Bethanie Peres DO PCP No,Local Physician Referring Physician Date of Admission Aug 24, 2018 at 01:32 Home Medications & Allergies Home Medications Reviewed patient Home Medication Reconciliation performed by pharmacy medication reconciliations chemical laboratory technician and/or nursing. Patients Allergies have been reviewed. Allergies Allergies Coded Allergies No Known Drug Allergies (Unverified10/18/16) Past Lolfqub-Bsppac-Cfjmdx Hx Past Med/Social Hx: Reviewed Nursing Past Med/Soc Hx Patient Social History Marrital Status: Employed/Student: employed Alcohol Use: Denies Use Number of Drinks Today: AA Alcohol Beverage of Choice: Beer Recreational Drug Use: No Smoking Status: Former Smoker Former Smoker, Quit: Sep 25, 1986 Type Used: Cigarettes Physical Abuse Screen: No Sexual Abuse: No Recent Foreign Travel: No Contact w/other who traveled: No Recent Hopitalizations: No Recent Infectious Disease Expo: No Seasonal Allergies Seasonal Allergies: No Past Medical History Surgeries: Orthopedic History of Blood Disorders: No Family History Reviewed Nursing Family Hx Diabetes mellitus 19 MOTHER FH: cancer G8 BROTHER Myocardial infarction 19 FATHER Heart Disease, Cancer, Diabetes Review of Systems ROS-Unable to Obtain: Not seen prior to DC, Cardiology DC patient Constitutional: other (Not seen prior to DC, Cardiology DC patient) Physical Exam Physical Exam Vital Signs Vital Signs - First Documented 08/23/18 08/24/18 23:43 01:57 Temp 97.2 Pulse 75 Resp 19 B/P (MAP) 182/97 (125) Pulse Ox 98 O2 Delivery Room Air Capillary Refill : Less Than 3 Seconds Height, Weight, BMI Height: 6'0.00" Weight: 215lbs. 0.0oz. 97.605264bw; 29.2 BMI Method:Stated General Appearance: Other (Not seen prior to DC, Cardiology DC patient) Results Results/Procedures Labs Laboratory Tests 08/23/18 23:49 Patient resulted labs reviewed. Assessment/Plan Admission Diagnosis Not seen prior to DC, Cardiology DC patient Admission Status: Observation Reason for Inpatient Admission: Not seen prior to DC, Cardiology DC patient Clinical Quality Measures AMI/AHF: ASA po Prior to arrival: No DVT/VTE Risk/Contraindication: Risk Factor Score Per Nursin RFS Level Per Nursing on Admit: 3=High BETHANIE PERES DO Aug 24, 2018 08:52
[2018-08-24] MEDS ORDERED: ASPIRIN E.C. 81 MG (ECOTRIN) TAB PO SCH (09:00)
== END 2018-08-24 12:56 | disposition home or self-care (01) ==
LOC: EDUNIT# 23:41 → ER 23:43 → 4TH 23:44 → UNDOADMOB 08-24 01:32 → UNDODISOB 08-24 13:10
PROVIDERS: ADMIT Internal Medicine; ATTEND Internal Medicine
DX: R07.9 Chest pain, unspecified (principal); R09.1 Pleurisy; I10 Essential (primary) hypertension; Z82.49 Family history of ischemic heart disease and other diseases of the circulatory system; Z87.891 Personal history of nicotine dependence; Z79.899 Other long term (current) drug therapy
CPT/HCPCS: 36415; 71045; 71275; 80053; 80061; 82150; 83690; 83735; 83874; 84484; 85025; 85379; 85610; 85730; 90471; 90686; 93005; 93041; 93351; 96360; 96372; G0378

== ENCOUNTER 2021-10-26 18:51 | Observation (INO) | payer MEDICARE, OTHER ==
[~2021-10-26] VITALS: Ht 183 cm; Wt 82.0 kg
[~2021-10-26 18:51] MED LIST changes: +MTP25TSR PO
[2021-10-26] MEDS ORDERED: ACETAMINOPHEN 500 MG TAB (TYLENOL) PO PRN (19:00)
[2021-10-26] MEDS ORDERED: LACTATED RINGERS 1,000 ML IV ONE (19:00)
--- NOTE | 2021-10-26 19:10 | ED General ---
General Stated Complaint: UNABLE TO WALK Source of Information: Patient (LIMITED HISTORIAN), EMS History of Present Illness Date Seen by Provider: Oct 26, 2021 Time Seen by Provider: 18:55 Initial Comments PT ARRIVES VIA EMS FROM HOME C/O GENERALIZED WEAKNESS ALL DAY TODAY--GOT UP TO GO TO BATHROOM AND WAS TOO WEAK TO WALK, AND SON HAD TO ASSIST--STARTED TO FALL, BUT SON CAUGHT HIM--NO TRAUMA TEMP 100.1 PER EMS PULSE 110-120 PER EMS PT RECEIVED COVID-19 BOOSTER YESTERDAY HAS NOT HAD FLU VACCINE NO OTHER SYMPTOMS PT DENIES PAIN ANYWHERE NO HEADACHE NO CHEST PAIN NO SHORTNESS OF BREATH NO GI SYMPTOMS NO URINARY SYMPTOMS NO BODY ACHES NO VISION CHANGES NO PARESTHESIAS OR MOTOR DEFICITS PT DOES NOT HAVE A DR--DOES NOT GO TO DR AND THEREFORE TAKES NO MEDICATIONS SEEN HERE 09/2016 AND ADMITTED FOR SIMILAR COMPLAINTS AND DX WITH INFLUENZA A AT THAT TIME, ALSO NOTED TO HAVE A LUNG MASS ON CT SEEN HERE 07/2018 AND ADMITTED FOR CHEST PAIN--DISMISSED THE FOLLOWING DAY. STRESS TEST AND ECHOCARDIOGRAM WERE NONDIAGNOSTIC STATES HE HAS NOT SEEN A DR SINCE HE WAS ADMITTED HERE THE LAST TIME PCP: NONE Allergies and Home Medications Allergies Coded Allergies: No Known Drug Allergies (Unverified , 10/18/16) Patient Home Medication List Home Medication List Reviewed: Yes Metoprolol Succinate (Metoprolol Succinate) 25 Mg Tab.er.24h, 25 MG PO DAILY Prescribed by: NILA EISENBERG on 08/24/18 0826 Review of Systems Review of Systems Constitutional: see HPI, fever, malaise, weakness EENTM: no symptoms reported Respiratory: no symptoms reported Cardiovascular: no symptoms reported Gastrointestinal: no symptoms reported Genitourinary: no symptoms reported Musculoskeletal: no symptoms reported Skin: no symptoms reported Psychiatric/Neurological: No Symptoms Reported Hematologic/Lymphatic: No Symptoms Reported Immunological/Allergic: no symptoms reported Past Vgwxxgh-Yypuwr-Oynscp Hx Seasonal Allergies Seasonal Allergies: No Past Medical History Surgeries: Yes Orthopedic Respiratory: Yes (LUNG MASS NOTED ON CT CHEST IN 2017--PT NEVER FOLLOWED UP WITH ANYONE) Cardiac: No Neurological: No Genitourinary: No Gastrointestinal: No Musculoskeletal: No Endocrine: No HEENT: No (GLASSES) Cancer: No Psychosocial: No Integumentary: No Blood Disorders: No Family Medical History Diabetes mellitus 19 MOTHER FH: cancer G8 BROTHER Myocardial infarction 19 FATHER Heart Disease, Cancer, Diabetes Physical Exam Vital Signs Vital Signs - First Documented 10/26/21 18:55 Temp 37.1 Pulse 100 Resp 20 B/P (MAP) 126/78 (94) Pulse Ox 93 O2 Delivery Room Air Capillary Refill : Height, Weight, BMI Height: 6'0.00" Weight: 215lbs. 0.0oz. 97.888913qs; 29.2 BMI Method:Stated General Appearance: No Apparent Distress, WD/WN, Other (GENERALIZED WEAKNESS) HEENT: PERRL/EOMI, TMs Normal, Normal ENT Inspection, Pharynx Normal Neck: Full Range of Motion, Normal Inspection, Non Tender, Supple Respiratory: Normal Breath Sounds, No Accessory Muscle Use, No Respiratory Distress Cardiovascular: Regular Rate, Rhythm, No Edema, No JVD, No Murmur, Normal Peripheral Pulses Gastrointestinal: Normal Bowel Sounds, No Organomegaly, No Pulsatile Mass, Non Tender, Soft Back: Normal Inspection, No CVA Tenderness Extremity: Normal Capillary Refill, Normal Inspection, Normal Range of Motion, Non Tender, No Calf Tenderness, No Pedal Edema Neurologic/Psychiatric: Alert, Oriented x3, No Motor/Sensory Deficits, 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 Norm as Tested, Other (FLAT AFFECT) Skin: Normal Color, Warm/Dry Focused Exam Sepsis Stage: Ruled Out Reason for ruling out sepsis: DOES NOT MEET CRITERIA Possible Source: Genitouriary Lactate Level 10/26/21 19:05: Lactic Acid Level 1.61 Time of Focused Exam: 19:45 Respiratory: Normal Breath Sounds, No Accessory Muscle Use, No Respiratory Distress Cardiovascular: Regular Rate, Rhythm, No Edema, No JVD, No Murmur, Normal Peripheral Pulses Capillary Refill: Less Than 3 Seconds Skin: normal color, warm/dry Lactic Acid Level Laboratory Tests Test 10/26/21 19:05 Lactic Acid Level 1.61 MMOL/L (0.50-2.00) Within 3hrs of presentation: Admin fluids, Admin ABX, Blood cultures prior to ABX's, Focus exam, Lactate level Progress/Results/Core Measures Suspected Sepsis SIRS Temperature: Pulse: Respiratory Rate: Laboratory Tests 10/26/21 19:05: White Blood Count 8.8 Blood Pressure / Mean: 10/26/21 19:05: Lactic Acid Level 1.61 Laboratory Tests 10/26/21 19:05: Creatinine 1.20, INR Comment 1.1, Platelet Count 417H, Total Bilirubin 0.8 Results/Orders Lab Results Laboratory Tests Test 10/26/21 17:30 10/26/21 19:05 10/26/21 19:29 Range/Units White Blood Count 8.8 4.3-11.0 10^3/uL Red Blood Count 6.33 H 4.30-5.52 10^6/uL Hemoglobin 18.1 H 13.3-17.7 g/dL Hematocrit 53 40-54 % Mean Corpuscular Volume 83 80-99 fL Mean Corpuscular Hemoglobin 29 25-34 pg Mean Corpuscular Hemoglobin Concent 34 32-36 g/dL Red Cell Distribution Width 12.7 10.0-14.5 % Platelet Count 417 H 130-400 10^3/uL Mean Platelet Volume 9.5 9.0-12.2 fL Immature Granulocyte % (Auto) 1 % Neutrophils (%) (Auto) 72 42-75 % Lymphocytes (%) (Auto) 15 12-44 % Monocytes (%) (Auto) 11 0-12 % Eosinophils (%) (Auto) 0 0-10 % Basophils (%) (Auto) 1 0-10 % Neutrophils # (Auto) 6.3 1.8-7.8 10^3/uL Lymphocytes # (Auto) 1.3 1.0-4.0 10^3/uL Monocytes # (Auto) 0.9 0.0-1.0 10^3/uL Eosinophils # (Auto) 0.0 0.0-0.3 10^3/uL Basophils # (Auto) 0.1 0.0-0.1 10^3/uL Immature Granulocyte # (Auto) 0.1 0.0-0.1 10^3/uL Erythrocyte Sedimentation Rate 10 0-30 MM/HR Prothrombin Time 14.6 12.2-14.7 SEC INR Comment 1.1 0.8-1.4 Activated Partial Thromboplast Time 37 H 24-35 SEC Sodium Level 129 L 135-145 MMOL/L Potassium Level 4.1 3.6-5.0 MMOL/L Chloride Level 97 L 98-107 MMOL/L Carbon Dioxide Level 20 L 21-32 MMOL/L Anion Gap 12 5-14 MMOL/L Blood Urea Nitrogen 12 7-18 MG/DL Creatinine 1.20 0.60-1.30 MG/DL Estimat Glomerular Filtration Rate 62 BUN/Creatinine Ratio 10 Glucose Level 243 H 70-105 MG/DL Lactic Acid Level 1.61 0.50-2.00 MMOL/L Calcium Level 9.0 8.5-10.1 MG/DL Corrected Calcium 9.2 8.5-10.1 MG/DL Total Bilirubin 0.8 0.1-1.0 MG/DL Aspartate Amino Transf (AST/SGOT) 27 5-34 U/L Alanine Aminotransferase (ALT/SGPT) 38 0-55 U/L Alkaline Phosphatase 101 40-136 U/L Lactate Dehydrogenase 256 H 125-220 U/L C-Reactive Protein High Sensitivity 3.72 H 0.00-0.50 MG/DL Total Protein 8.2 6.4-8.2 GM/DL Albumin 3.8 3.2-4.5 GM/DL Beta-Hydroxybutyrate (Chem panel) 0.43 H 0.00-0.27 MMOL/L Procalcitonin 0.08 <0.10 NG/ML Influenza Type A Antigen NEGATIVE NEGATIVE Influenza Type B Antigen NEGATIVE NEGATIVE SARS-CoV-2 RNA (RT-PCR) Not Detected Negative Urine Color YELLOW Urine Clarity CLEAR Urine pH 6.0 5-9 Urine Specific [place] 1.025 H 1.016-1.022 Urine Protein 1+ H NEGATIVE Urine Glucose (UA) TRACE H NEGATIVE Urine Ketones TRACE H NEGATIVE Urine Nitrite NEGATIVE NEGATIVE Urine Bilirubin 1+ H NEGATIVE Urine Urobilinogen 1.0 < = 1.0 MG/DL Urine Leukocyte Esterase NEGATIVE NEGATIVE Urine RBC (Auto) TRACE-I H NEGATIVE Urine RBC 0-2 /HPF Urine WBC RARE /HPF Urine Crystals PRESENT H /LPF Urine Amorphous Sediment RARE NAEEM URATES H /LPF Urine Bacteria TRACE /HPF Urine Casts NONE /LPF Urine Mucus SMALL H /LPF Urine Culture Indicated CULTURE PENDING My Orders Orders - EMILY WYNN DO Ed Iv/Invasive Line Start (10/26/21 18:55) Ekg Tracing (10/26/21 18:55) O2 (10/26/21 18:55) Monitor-Rhythm Ecg Trace Only (10/26/21 18:55) Cbc With Automated Diff (10/26/21 18:55) Comprehensive Metabolic Panel (10/26/21 18:55) Procalcitonin (Pct) (10/26/21 18:55) Hs C Reactive Protein (10/26/21 18:55) Erythrocyte Sedimentation Rate (10/26/21 18:55) LDH (10/26/21 18:55) Blood Culture (10/26/21 18:55) Chest 1 View, Ap/Pa Only (10/26/21 18:55) Covid 19 Inhouse Test (10/26/21 18:55) Sputum Culture (10/26/21 18:55) Urinalysis (10/26/21 18:55) Urine Culture (10/26/21 18:55) Protime With Inr (10/26/21 18:55) Partial Thromboplastin Time (10/26/21 18:55) Acetaminophen Tablet (Tylenol Tablet) (10/26/21 19:00) Ed Iv/Invasive Line Start (10/26/21 18:55) Ed Iv/Invasive Line Start (10/26/21 18:55) Vital Signs Adult Sepsis Patie Q15M (10/26/21 18:55) O2 (10/26/21 18:55) Remove Rings In Anticipation O (10/26/21 18:55) Lactic Acid Analyzer (10/26/21 18:55) Lactated Ringers (Lr 1000 Ml Iv Solution (10/26/21 19:00) Isolation Central Supply Req (10/26/21 18:55) Influenza A & B Antigens (10/26/21 19:05) Ed Iv/Invasive Line Start (10/26/21 19:38) Ns Iv 1000 Ml (Sodium Chloride 0.9%) (10/26/21 19:45) Hemoglobin A1c (10/26/21 19:57) Beta Hydroxybutyrate (10/26/21 19:57) Ceftriaxone 1 Gm Pre-Mix (Rocephin 1 Gm (10/26/21 20:00) Ed Admission (Communication) (10/26/21 20:00) Medications Given in ED Current Medications Medications Dose Ordered Sig/Trinity Route Start Time Stop Time Status Last Admin Dose Admin Acetaminophen 1,000 mg ONCE PRN PO 10/26/21 19:00 10/26/21 19:32 DC 10/26/21 19:31 1,000 MG Ceftriaxone Sodium/Dextrose 50 ml @ 100 mls/hr ONCE ONCE IV 10/26/21 20:00 10/26/21 20:29 DC 10/26/21 20:08 100 MLS/HR Lactated Ringer's 1,000 ml @ 0 mls/hr Q0M ONCE IV 10/26/21 19:00 10/26/21 19:01 DC 10/26/21 19:31 1,000 MLS/HR Vital Signs/I&O 10/26/21 18:55 Temp 37.1 Pulse 100 Resp 20 B/P (MAP) 126/78 (94) Pulse Ox 93 O2 Delivery Room Air Capillary Refill : Progress Note : Progress Note GIVEN IV FLUIDS SEPSIS PROTOCOL INITIATED NO DETERIORATION IN PT'S CONDITION DURING ER STAY Diagnostic Imaging Comments CXR--PER RADIOLOGIST REPORT AT 1933 FINDINGS: The heart size is normal. The pulmonary vascularity is unremarkable. The lungs are clear. No infiltrate, effusion or pneumothorax is detected. IMPRESSION: No acute cardiopulmonary process is detected. Reviewed: Reviewed by Me Departure Communication (Admissions) 1957--SPOKE WITH DR. BRUMFIELD, HOSPITALIST, ACCEPTS PT FOR ADMIT. SHE WILL PUT IN ADMIT ORDERS Impression Primary Impression: Generalized weakness Additional Impressions: REPORTED FEVER AT HOME RECENT COVID-19 VACCINE Hyperglycemia Hyponatremia UTI (urinary tract infection) Disposition: ADMITTED INPATIENT Condition: Stable Admissions Decision to Admit Reason: Admit from ER (General) Decision to Admit/Date: Oct 26, 2021 Time/Decision to Admit Time: 20:00 Departure-Patient Inst. Referrals: NO,LOCAL PHYSICIAN (PCP/Family) Primary Care Physician EMILY WYNN DO Oct 26, 2021 19:10
[2021-10-26 19:15] LABS: BASOPHILS # (AUTO) 0.1 10^3/uL (0.0-0.1); BASOPHILS % (AUTO) 1 % (0-10); EOSINOPHILS % (AUTO) 0 % (0-10); HEMATOCRIT 53 % (40-54); HEMOGLOBIN 18.1 g/dL (13.3-17.7); LYMPHOCYTES # (AUTO) 1.3 10^3/uL (1.0-4.0); LYMPHOCYTES % (AUTO) 15 % (12-44); MEAN CORPUSCULAR HEMOGLOBIN 29 pg (25-34); MEAN CORPUSCULAR HGB CONC 34 g/dL (32-36); MEAN CORPUSCULAR VOLUME 83 fL (80-99); MEAN PLATELET VOLUME 9.5 fL (9.0-12.2); MONOCYTES # (AUTO) 0.9 10^3/uL (0.0-1.0); MONOCYTES % (AUTO) 11 % (0-12); NEUTROPHILS # (AUTO) 6.3 10^3/uL (1.8-7.8); NEUTROPHILS % (AUTO) 72 % (42-75); PLATELET COUNT 417 10^3/uL (130-400); WHITE BLOOD COUNT 8.8 10^3/uL (4.3-11.0)
--- NOTE | 2021-10-26 19:19 | Diagnostic Imaging Report ---
INDICATION: Fever. TIME OF EXAM: 7:17 PM CORRELATION is made with prior chest from 08/23/2018. FINDINGS: The heart size is normal. The pulmonary vascularity is unremarkable. The lungs are clear. No infiltrate, effusion or pneumothorax is detected. IMPRESSION: No acute cardiopulmonary process is detected. Dictated by: Dictated on workstation # [id number]
[2021-10-26 19:26] LABS: ALBUMIN 3.8 GM/DL (3.2-4.5); POTASSIUM 4.1 MMOL/L (3.6-5.0); TOTAL PROTEIN 8.2 GM/DL (6.4-8.2)
[2021-10-26 19:28] LABS: BILIRUBIN,TOTAL 0.8 MG/DL (0.1-1.0)
[2021-10-26 19:29] LABS: INR 1.1 (0.8-1.4); PROTHROMBIN TIME PATIENT 14.6 SEC (12.2-14.7)
[2021-10-26 19:30] LABS: CREATININE SERUM 1.2 MG/DL (0.60-1.30)
[2021-10-26 19:38] LABS: CLARITY,URINE CLEAR; COLOR,URINE YELLOW; GLUCOSE, URINE (UA) TRACE (NEGATIVE); KETONES,URINE TRACE (NEGATIVE); LEUKOCYTE ESTERASE ,URINE NEGATIVE (NEGATIVE); NITRITE,URINE NEGATIVE (NEGATIVE); PROTEIN,URINE 1+ (NEGATIVE)
[2021-10-26] MEDS ORDERED: NS IV 1000 ML 1,000 ML IV SCH (19:45)
[2021-10-26 19:47] LABS: ERYTHROCYTE SEDIMENTATION RATE 10 MM/HR (0-30)
[2021-10-26 19:52] LABS: AMORPHOUS SEDIMENT,UR RARE AMOR URATES /LPF; BACTERIA,URINE TRACE /HPF; BILIRUBIN,URINE 1+ (NEGATIVE); RBC,URINE 0-2 /HPF; WBC,URINE RARE /HPF
[2021-10-26] MEDS ORDERED: cefTRIAXone 1 GM PRE-MIX 50 ML IV ONE (20:00)
[2021-10-26] MEDS ORDERED: CALCIUM CARBONATE 500 MG (TUMS) TAB.CHEW PO PRN (21:00)
[2021-10-26] MEDS ORDERED: ONDANSETRON 4 MG (ZOFRAN) ORAL DISSOLVE TAB PO PRN (21:00)
[2021-10-26] MEDS ORDERED: ENOXAPARIN 40 MG/0.4 ML (LOVENOX) SYR SC SCH (21:00)
[2021-10-26] MEDS ORDERED: ACETAMINOPHEN 325 MG TABLET PO PRN (21:00)
[2021-10-26] MEDS ORDERED: morphine INJ 4 MG/ML 1 ML (VIAL/SYRINGE) IV PRN (21:00)
[2021-10-26] MEDS ORDERED: ONDANSETRON 4 MG/2 ML (SDV) Z0FRAN IV PRN (21:00)
[2021-10-26] MEDS ORDERED: ALPRAZolam 0.25 MG (XANAX) TAB PO PRN (21:00)
[2021-10-26] MEDS ORDERED: diphenhydrAMINE 50 MG/ML INJ (BENADRYL) IVP PRN (21:00)
[2021-10-26] MEDS ORDERED: MELATONIN 3 MG TABLET PO PRN (21:00)
[2021-10-26] MEDS ORDERED: HYDROcodone/APAP 5 MG/325 MG (LORTAB) TAB PO PRN (21:00)
[2021-10-26] MEDS ORDERED: NALOXONE 0.4 MG/ML 1 ML (NARCAN) VIAL IV PRN (21:00)
[2021-10-26] MEDS ORDERED: diphenhydrAMINE 25 MG TAB (BENADRYL) PO PRN (21:00)
[2021-10-26] MEDS ORDERED: LACTULOSE SYRUP 10GM/15ML (ENULOSE) 30ML UDC PO PRN (21:00)
[2021-10-26] MEDS ORDERED: polyethylene glycoL POWDER 17 GM (MIRALAX) PACK PO PRN (21:00)
[2021-10-26] MEDS ORDERED: BISACODYL 10 MG SUPP (DULCOLAX) PR PRN (21:00)
[2021-10-26] MEDS ORDERED: MILK OF MAGNESIA 400 MG/5 ML 30 ML UDC PO PRN (21:00)
[2021-10-26] MEDS ORDERED: ANTACID SUSP 30 ML UDC (MYLANTA) PO PRN (21:00)
[2021-10-26 21:10] VITALS: BP 126/78
[2021-10-26] MEDS ORDERED: RT-ALBUTEROL SULF 2.5 MG/3 ML PRE-MIX VIAL INH PRN (21:15)
[2021-10-26 22:20] VITALS: BP 135/84
[2021-10-26] MEDS: DOCUSATE SODIUM 100 MG (COLACE) CAP PO SCH (22:44)
[2021-10-26] MEDS: SENNOSIDES 8.6 MG (SENOKOT) TAB PO SCH (22:44)
[2021-10-26] MEDS: NS IV 1000 ML 1,000 ML IV SCH (22:52)
[2021-10-26] MEDS: inSUlin ASPART (NovoLOG) 1 UNIT/0.01 ML (CHARGE PER UNIT) SC SCH (22:53)
[2021-10-27 00:39] VITALS: BP 122/70
[2021-10-27 04:00] VITALS: BP 132/67
[2021-10-27 05:41] VITALS: BP 132/67
[2021-10-27] MEDS: inSUlin ASPART (NovoLOG) 1 UNIT/0.01 ML (CHARGE PER UNIT) SC SCH ×2 (05:50→12:30)
[2021-10-27 06:02] LABS: BASOPHILS # (AUTO) 0.1 10^3/uL (0.0-0.1); BASOPHILS % (AUTO) 1 % (0-10); EOSINOPHILS # (AUTO) 0.3 10^3/uL (0.0-0.3); EOSINOPHILS % (AUTO) 4 % (0-10); HEMATOCRIT 49 % (40-54); HEMOGLOBIN 16.6 g/dL (13.3-17.7); LYMPHOCYTES % (AUTO) 29 % (12-44); MEAN CORPUSCULAR HEMOGLOBIN 28 pg (25-34); MEAN CORPUSCULAR HGB CONC 34 g/dL (32-36); MEAN CORPUSCULAR VOLUME 84 fL (80-99); MEAN PLATELET VOLUME 9.5 fL (9.0-12.2); MONOCYTES # (AUTO) 1.1 10^3/uL (0.0-1.0); MONOCYTES % (AUTO) 16 % (0-12); NEUTROPHILS # (AUTO) 3.4 10^3/uL (1.8-7.8); NEUTROPHILS % (AUTO) 49 % (42-75); PLATELET COUNT 331 10^3/uL (130-400); WHITE BLOOD COUNT 6.8 10^3/uL (4.3-11.0)
[2021-10-27 06:15] LABS: ALBUMIN 3.3 GM/DL (3.2-4.5); POTASSIUM 3.7 MMOL/L (3.6-5.0)
[2021-10-27 06:17] LABS: CALCIUM 8.2 MG/DL (8.5-10.1)
[2021-10-27 06:20] LABS: BILIRUBIN,TOTAL 0.6 MG/DL (0.1-1.0)
[2021-10-27 06:21] LABS: CREATININE SERUM 0.78 MG/DL (0.60-1.30)
--- NOTE | 2021-10-27 08:04 | History & Physical ---
History of Present Illness HPI/Chief Complaint CC: severe weakness following Covid vaccine HPI: 76 yr old WM with no past medical history who presents to ER with severe generalized weakness after the Covid vaccine with 102 degree fever. He was given supportive care with IV fluid, blood sugars were noted to be hyperglycemic, HgA1C obtained, blood pressure remained stable, PT and OT assessed the pt found him to have no source of any long standing debilitation so he was deemed stable for discharge. He will establish his care with me as his PCP. He was sent home o n 1.52 mg of Glyburide for blood sugar elevation and follow up with HgA1C. Source: patient Exam Limitations: no limitations Date Seen 10/27/21 Time Seen by a Provider: 11:00 Attending Physician Bethanie Peres DO PCP No,Local Physician Referring Physician Date of Admission Oct 26, 2021 at 20:01 Home Medications & Allergies Home Medications Reviewed patient Home Medication Reconciliation performed by pharmacy medication reconciliations performing arts technicians and/or nursing. Patients Allergies have been reviewed. 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) Alcohol Beverage of Choice: Beer Smoking Status: Never a Smoker Former Smoker, Quit: Sep 25, 1986 Type Used: Cigarettes Recent Hopitalizations: No Recent Infectious Disease Expo: No Seasonal Allergies Seasonal Allergies: No Past Medical History Surgeries: Orthopedic History of Blood Disorders: No Family History Diabetes mellitus 19 MOTHER FH: cancer G8 BROTHER Myocardial infarction 19 FATHER Heart Disease, Cancer, Diabetes Review of Systems Constitutional: see HPI, dizziness, fever, malaise, weakness EENTM: no symptoms reported Respiratory: no symptoms reported Cardiovascular: no symptoms reported Gastrointestinal: no symptoms reported Genitourinary: no symptoms reported Musculoskeletal: no symptoms reported Skin: no symptoms reported Psychiatric/Neurological: No Symptoms Reported All Other Systems Reviewed Negative Unless Noted: Yes Physical Exam Physical Exam Vital Signs Vital Signs - First Documented 10/26/21 10/26/21 10/26/21 18:55 20:55 21:10 Temp 37.1 Pulse 100 Resp 20 B/P (MAP) 126/78 (94) Pulse Ox 93 O2 Delivery Room Air O2 Flow Rate 2.00 FiO2 21 Capillary Refill : Less Than 3 Seconds Height, Weight, BMI Height: 6'0.00" Weight: 215lbs. 0.0oz. 97.353667lz; 24.48 BMI Method:Stated General Appearance: No Apparent Distress, WD/WN, Other (GENERALIZED WEAKNESS) HEENT: PERRL/EOMI, Normal ENT Inspection, Pharynx Normal Neck: Full Range of Motion, Normal Inspection, Non Tender, Supple Respiratory: Normal Breath Sounds, No Accessory Muscle Use, No Respiratory Distress Cardiovascular: Regular Rate, Rhythm, No Edema, No JVD, No Murmur, Normal Peripheral Pulses Gastrointestinal: Normal Bowel Sounds, No Organomegaly, No Pulsatile Mass, Non Tender, Soft Back: Normal Inspection, No CVA Tenderness Extremity: Normal Capillary Refill, Normal Inspection, Normal Range of Motion, Non Tender, No Calf Tenderness, No Pedal Edema Neurologic/Psychiatric: Alert, Oriented x3, No Motor/Sensory Deficits, 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 Assessment/Plan Admission Diagnosis Assessment: Post Covid vaccine reaction Fever Hyperglycemia with new diagnosis of diabetes hemoglobin A1c 7.9 placed on gl yburide Plan: Discharge home Supportive care Glyburide Follow-up with tx as outpatient Admission Status: Observation Diagnosis/Problems Diagnosis/Problems (1) Generalized weakness Status: Acute (2) Hyponatremia Status: Acute (3) Hyperglycemia Status: Acute BETHANIE PERES DO Oct 27, 2021 08:04
[2021-10-27] MEDS ORDERED: RT-ALBUTEROL HFA 8.5 GM INHALER IH PRN (08:30)
[2021-10-27] MEDS: SENNOSIDES 8.6 MG (SENOKOT) TAB PO SCH (08:43)
[2021-10-27] MEDS: DOCUSATE SODIUM 100 MG (COLACE) CAP PO SCH (08:43)
[2021-10-27] MEDS: NS IV 1000 ML 1,000 ML IV SCH (08:43)
[2021-10-27 08:55] VITALS: BP 133/77
[2021-10-27] MEDS ORDERED: DIPH25TA65 PO (09:49)
--- NOTE | 2021-10-27 10:42 | Physical Therapy Evaluation ---
PT Evaluation-General Medical Diagnosis Admission Date Oct 26, 2021 at 20:01 Medical Diagnosis: UTI Onset Date: Oct 26, 2021 Therapy Diagnosis Therapy Diagnosis: decreased mobility Height/Weight Height (Feet): 6 Height (Inches): 0.00 Weight (Pounds): 215 Weight (Ounces): 0.0 Precautions Precautions/Isolations: Contact Isolation, Droplet Isolation, Fall Prevention, Standard Precautions Weight Bear Status Right Lower Extremity: Right Full Weight Bearing Left Lower Extremity: Left Full Weight Bearing Referral Physician: Dr. Peres Reason for Referral: Evaluation/Treatment Medical History Additional Medical History lung mass Current History Presented to ER with increased weakness at home, near fall. Social History Home: Single Level Current Living Status: Spouse Entry Into Home: Stairs With Railing Prior Prior Level of Function SCALE: Activities may be completed with or without assistive devices. 6-Hnuunypdyf-thvkvks completes the activity by him/herself with no assistance from a helper. 5-Set-up or Clean-up Assistance-helper sets up or cleans up; patient completes activity. Fenton assists only prior to or following the activity. 4-Supervision or Touching Assistance-helper provides verbal cues and/or touching/steadying and/or contact guard assistance as patient completes activity. Assistance may be provided throughout the activity or intermittently. 3-Partial/Moderate Assistance-helper does LESS THAN HALF the effort. Fenton lifts, holds or supports trunk or limbs, but provides less than half the effort. 2-Substantial/Maximal Assistance-helper does MORE THAN HALF the effort. Fenton lifts or holds trunk or limbs and provides more than half the effort. 0-Ksxvenskg-hslxzl does ALL the effort. Patient does none of the effort to complete the activity. Or, the assistance of 2 or more helpers is required for the patient to complete the activity. If activity was not attempted, code reason: 7-Patient Refused. 9-Not Applicable-not attempted and the patient did not perform the activity before the current illness, exacerbation or injury. 10-Not Attempted due to Environmental Limitations-(lack of equipment, weather restraints, etc.). 88-Not Attempted due to Medical Conditions or Safety Concerns. Bed Mobility: 6 Transfers (B,C,W/C): 6 Gait: 6 Stairs: 6 Indoor Mobility (Ambulation): Independent PT Evaluation-Current Subjective Pt. in bed, declines sitting up in chair but states he is feeling better. Pt/Family Goals home with spouse Objective Patient Orientation: Person, Place, Time, Situation Attachments: IV ROM/Strength ROM Upper Extremities WNL ROM Lower Extremities WNL Strength Upper Extremities WNL Strength Lower Extremities Grossly 5/5 Integumentary/Posture Integumentary grossly intact Bowel Incontinence: No Bladder Incontinence: No Posture generally upright Neuromuscular (Tone, Coordination, Reflexes) intact Sensory Vision: Functional Hearing: Functional Sensation Right Upper Extremit: Intact Sensation Left Upper Extremity: Intact Sensation Right Lower Extremit: Intact Sensation Left Lower Extremity: Intact Transfers Sit to Lying (QC): 6 Lying to Sitting/Side of Bed(Q: 6 Sit to Stand (QC): 4 Gait Does the Patient Walk?: Yes Mode of Locomotion: Walk Anticipated Mode of Locomotion: Walk Distance: 5 ft Gait Assistive Device: None Comments/Gait Description SBA with short distance ambulation in room Balance Sitting Static: Good Sitting Dynamic: Good Standing Static: Good Standing Dynamic: Good Assessment/Needs Pt. is a 76 y.o. with mild mobility deficits following illness but already improved from admission. Pt. was steady with standing balance at edge of bed and walked from bed to window in room with SBA. Pt. will be seen short term to ensure safe mobility and gait for return home. Rehab Potential: Good PT Short Term Goals Short Term Goals Time Frame: Oct 29, 2021 Sit to lyin Lying to sitting on side of be: 6 Sit to stand: 6 Chair/jnw-xs-dnfvb transfer: 6 Toilet transfer: 6 Walk 10 feet: 6 Walk 50 feet with two turns: 6 PT Plan Problem List Problem List: Activity Tolerance, Functional Strength, Safety, Balance, Gait, Transfer, Bed Mobility, ROM Treatment/Plan Treatment Plan: Continue Plan of Care Treatment Plan: Bed Mobility, Education, Functional Activity Joelle, Functional Strength, Gait, Safety, Therapeutic Exercise, Transfers Treatment Duration: Oct 29, 2021 Frequency: 3 times per week Estimated Hrs Per Day: .25 hour per day Patient and/or Family Agrees t: Yes Time/GCodes Time In: 0946 Time Out: 1000 Total Billed Treatment Time: 14 Total Billed Treatment 1, RENETTA 14' ZAID SNYDER PT Oct 27, 2021 10:42
--- NOTE | 2021-10-27 12:01 | Occupational Therapy Eval ---
OT Evaluation-General/PLF Medical Diagnosis Admission Date Oct 26, 2021 at 20:01 Medical Diagnosis: Generalized weakness/UTI Onset Date: Oct 26, 2021 Therapy Diagnosis Therapy Diagnosis: Debility Height/Weight Height (Feet): 6 Height (Inches): 0.00 Weight (Pounds): 215 Weight (Ounces): 0.0 Precautions Precautions/Isolations: Contact Isolation, Droplet Isolation, Fall Prevention, Standard Precautions Referral Physician: Dr. Peres Referral Reason: Activity Tolerance, Self Care, Evaluation/Treatment, Strengthening/ROM Referral Comments PUI Medical History Additional Medical History Lung mass that has went un-addressed. Current History Pt. became increasingly weak at home. Reviewed History: Yes Social History Home: Single Level Current Living Status: Spouse Entry Into Home: Stairs With Railing Steps Into Home: 2 ADL-Prior Level of Function SCALE: Activities may be completed with or without assistive devices. 7-Tqoloabxmq-lgkhbxz completes the activity by him/herself with no assistance from a helper. 5-Set-up or Clean-up Assistance-helper sets up or cleans up; patient completes activity. Cooter assists only prior to or following the activity. 4-Supervision or Touching Assistance-helper provides verbal cues and/or touching/steadying and/or contact guard assistance as patient completes activity. Assistance may be provided throughout the activity or intermittently. 3-Partial/Moderate Assistance-helper does LESS THAN HALF the effort. Cooter lifts, holds or supports trunk or limbs, but provides less than half the effort. 2-Substantial/Maximal Assistance-helper does MORE THAN HALF the effort. Cooter lifts or holds trunk or limbs and provides more than half the effort. 3-Nlvogbbkk-cpdjrz does ALL the effort. Patient does none of the effort to complete the activity. Or, the assistance of 2 or more helpers is required for the patient to complete the activity. If activity was not attempted, code reason: 7-Patient Refused. 9-Not Applicable-not attempted and the patient did not perform the activity before the current illness, exacerbation or injury. 10-Not Attempted due to Environmental Limitations-(lack of equipment, weather restraints, etc.). 88-Not Attempted due to Medical Conditions or Safety Concerns. ADL PLOF Comments Pt. independent with all daily skills. Drives. Lives with spouse. Does not use adaptive equipment. Self Care: Independent Functional Cognition: Independent DME/Equipment: Tub Drive Self: Yes OT Current Status Subjective No pain reported. Appearance Pt. in bed. Alert and oriented. Pleasant. Agrees to work with OT. Mental Status/Objective Patient Orientation: Person, Place, Time, Situation Attachments: IV Current Upper Extremity ROM WFL ADL-Treatment Eating (QC): 6 (per pt) Lower Body Dressing (QC): 6 On/Off Footwear (QC): 6 (Independent to doff/don slipper socks.) Toileting Hygiene (QC): 6 (Mod I with use of IV pole to transfer into and out of bed, and to ambulate to toilet, stand, and urinate.) Other Treatments Pt. agrees to use bathroom. Transfers to standing independently and holds onto IV pole. Ambulates into bathroom to urinate in toilet. Pt. ambulates back to bed and requests to stay sitting on edge of bed. Pt. able to doff/don slipper with no exertion or difficulty. Pt. up ad marky in room. Pt. able to pull down and up his underwear when toileting. No LOB or deficit noted. No further OT warranted at this time. Education OT Patient Education: Correct positioning, Modified ADL techniques, Progress toward Goal/Update tx plan, Purpose of tx/functional activities, Reviewed precautions, Rehab process, Transfer techniques Teaching Recipient: Patient Teaching Methods: Demonstration, Discussion Response to Teaching: Verbalize Understanding, Return Demonstration OT Usp Goals Usp Goals Time Frame: Oct 27, 2021 Eating (QC): 6 Toileting Hygiene (QC): 6 Lower Body Dressing (QC): 6 On/Off Footwear (QC): 6 Additional Goals: 1-Demonstrate ADL Tasks, 2-Verbalize Understanding, 3- ImproveStrength/Joelle 1=Demonstrate adherence to instructed precautions during ADL tasks. 2=Patient will verbalize/demonstrate understanding of assistive devices/modifications for ADL. 3=Patient will improve strength/tolerance for activity to enable patient to perform ADL's. OT Education/Plan Problem List/Assessment Assessment: No Skilled OT Needs ID'd Discharge Recommendations Plan/Recommendations: Discharge/Goals Met Therapy Discharge Recommendati: Home & Family Treatment Plan/Plan of Care Plan of Care: OTHER Treatment Duration: Oct 27, 2021 Frequency: 1 time per week Estimated Hrs Per Day: .25 hour per day Agreement: Yes Rehab Potential: Good Time/GCodes Start Time: 10:15 Stop Time: 10:30 Total Time Billed (hr/min): 15 Billed Treatment Time 1, EVH x 15minutes, Discharge ptYUSRA BRUNNER OT Oct 27, 2021 12:01
[2021-10-27] MEDS ORDERED: GLYB1.253 PO (12:59)
--- NOTE | 2021-10-27 13:08 | Discharge Summary ---
Diagnosis/Chief Complaint Date of Admission Oct 26, 2021 at 20:01 Date of Discharge Discharge Date: Oct 27, 2021 Discharge Diagnosis Post Covid vaccine side effect New onset diabetes hemoglobin A1c 7.9 Dehydration Fever Discharge Summary Discharge Physical Examination Allergies: Coded Allergies: No Known Drug Allergies (Unverified , 10/18/16) Vitals & I&Os Vital Signs Date Time Temp Pulse Resp B/P (MAP) Pulse Ox O2 Delivery O2 Flow Rate FiO2 10/27/21 13:46 37.0 71 18 138/77 97 Room Air 10/27/21 08:00 2.00 10/26/21 21:10 21 General Appearance: Alert, Oriented X3, Cooperative Respiratory: Clear to Auscultation Cardiovascular: Regular Rate Neuro: Normal Gait, Normal Speech, Strength at 5/5 X4 Ext Psych/Mental Status: Mental Status NL Hospital Course Was the Problem List Reviewed?: Yes Hospital course: Patient had a short hospital course after he was admitted following Covid vaccine and experienced a high fever of 102 and dehydration and generalized weakness. He was placed on supportive care and IV fluids throughout the night and PT and OT saw him and found him to be back to his baseline. New onset diabetes diagnosed with hemoglobin A1c of 7.9 so will discharge on small d ose of glyburide and will have him establish his care with me. Labs (last 24 hrs) Laboratory Tests 10/26/21 17:30: Coronavirus (COVID-19)(PCR) Negative 10/26/21 19:05: White Blood Count 8.8, Red Blood Count 6.33H, Hemoglobin 18.1H, Hematocrit 53, Mean Corpuscular Volume 83, Mean Corpuscular Hemoglobin 29, Mean Corpuscular Hemoglobin Concent 34, Red Cell Distribution Width 12.7, Platelet Count 417H, Mean Platelet Volume 9.5, Immature Granulocyte % (Auto) 1, Neutrophils (%) (Auto) 72, Lymphocytes (%) (Auto) 15, Monocytes (%) (Auto) 11, Eosinophils (%) (Auto) 0, Basophils (%) (Auto) 1, Neutrophils # (Auto) 6.3, Lymphocytes # (Auto) 1.3, Monocytes # (Auto) 0.9, Eosinophils # (Auto) 0.0, Basophils # (Auto) 0.1, Immature Granulocyte # (Auto) 0.1, Erythrocyte Sedimentation Rate 10, Prothrom bin Time 14.6, INR Comment 1.1, Activated Partial Thromboplast Time 37H, Sodium Level 129L, Potassium Level 4.1, Chloride Level 97L, Carbon Dioxide Level 20L, Anion Gap 12, Blood Urea Nitrogen 12, Creatinine 1.20, Estimat Glomerular Filtration Rate 62, BUN/Creatinine Ratio 10, Glucose Level 243H, Mean Blood Glucose 180H, Hemoglobin A1c 7.9H, Lactic Acid Level 1.61, Calcium Level 9.0, Corrected Calcium 9.2, Total Bilirubin 0.8, Aspartate Amino Transf (AST/SGOT) 27, Alanine Aminotransferase (ALT/SGPT) 38, Alkaline Phosphatase 101, Lactate Dehydrogenase 256H, C-Reactive Protein High Sensitivity 3.72H, Total Protein 8.2, Albumin 3.8, Beta-Hydroxybutyrate (Chem panel) 0.43H, Procalcitonin 0.08, Influenza Type A Antigen NEGATIVE, Influenza Type B Antigen NEGATIVE, SARS-CoV-2 RNA (RT-PCR) Not Detected 10/26/21 19:29: Urine Color YELLOW, Urine Clarity CLEAR, Urine pH 6.0, Urine Specific [place] 1.025H, Urine Protein 1+H, Urine Glucose (UA) TRACEH, Urine Ketones TRACEH, Urine Nitrite NEGATIVE, Urine Bilirubin 1+H, Urine Urobilinogen 1.0, Urine Leukocyte Esterase NEGATIVE, Urine RBC (Auto) TRACE-IH, Urine RBC 0-2, Urine WBC RARE, Urine Crystals PRESENTH, Urine Amorphous Sediment RARE NAEEM URATESH, Urine Bacteria TRACE, Urine Casts NONE, Urine Mucus SMALLH, Urine Culture Indicated CULTURE PENDING 10/26/21 22:14: Glucometer 170H 10/27/21 05:44: Glucometer 108 10/27/21 05:45: White Blood Count 6.8, Red Blood Count 5.89H, Hemoglobin 16.6, Hematocrit 49, Mean Corpuscular Volume 84, Mean Corpuscular Hemoglobin 28, Mean Corpuscular Hemoglobin Concent 34, Red Cell Distribution Width 12.6, Platelet Count 331, Mean Platelet Volume 9.5, Immature Granulocyte % (Auto) 2, Neutrophils (%) (Auto) 49, Lymphocytes (%) (Auto) 29, Monocytes (%) (Auto) 16H, Eosinophils (%) (Auto) 4, Basophils (%) (Auto) 1, Neutrophils # (Auto) 3.4, Lymphocytes # (Auto) 2.0, Monocytes # (Auto) 1.1H, Eosinophils # (Auto) 0.3, Basophils # (Auto) 0.1, Immature Granulocyte # (Auto) 0.1, Sodium Level 131L, Potassium Level 3.7, Chloride Level 102, Carbon Dioxide Level 19L, Anion Gap 10, Blood Urea Nitrogen 11, Creatinine 0.78, Estimat Glomerular Filtration Rate 92, BUN/Creatinine Ratio 14, Glucose Level 100, Calcium Level 8.2L, Corrected Calcium 8.8, Total Bilirubin 0.6, Aspartate Amino Transf (AST/SGOT) 22, Alanine Aminotransferase (ALT/SGPT) 31, Alkaline Phosphatase 83, Total Protein 7.0, Albumin 3.3 10/27/21 11:42: Glucometer 129H Microbiology 10/26/21 Blood Culture - Preliminary, Resulted No growth 10/26/21 Urine Culture - Final, Complete NO GROWTH Pending Labs Microbiology Date/Time Source Procedure Growth Status 10/26/21 19:45 Peripheral Left Forearm Blood Culture - Preliminary No growth Resulted 10/26/21 19:29 Urine Clean Catch Urine Culture - Final NO GROWTH Complete 10/26/21 19:05 Peripheral Lt Ac Blood Culture - Preliminary No growth Resulted Laboratory Tests 10/26/21 17:30: Coronavirus (COVID-19)(PCR) Negative 10/26/21 19:05: White Blood Count 8.8, Red Blood Count 6.33, Hemoglobin 18.1, Hematocrit 53, Mean Corpuscular Volume 83, Mean Corpuscular Hemoglobin 29, Mean Corpuscular Hemoglobin Concent 34, Red Cell Distribution Width 12.7, Platelet Count 417, Mean Platelet Volume 9.5, Immature Granulocyte % (Auto) 1, Neutrophils (%) (Auto) 72, Lymphocytes (%) (Auto) 15, Monocytes (%) (Auto) 11, Eosinophils (%) (Auto) 0, Basophils (%) (Auto) 1, Neutrophils # (Auto) 6.3, Lymphocytes # (Auto) 1.3, Monocytes # (Auto) 0.9, Eosinophils # (Auto) 0.0, Basophils # (Auto) 0.1, Immature Granulocyte # (Auto) 0.1, Erythrocyte Sedimentation Rate 10, Prothrombin Time 14.6, INR Comment 1.1, Activated Partial Thromboplast Time 37, Sodium Level 129, Potassium Level 4.1, Chloride Level 97, Carbon Dioxide Level 20, Anion Gap 12, Blood Urea Nitrogen 12, Creatinine 1.20, Estimat Glomerular Filtration Rate 62, BUN/Creatinine Ratio 10, Glucose Level 243, Mean Blood Glucose 180, Hemoglobin A1c 7.9, Lactic Acid Level 1.61, Calcium Level 9.0, Corrected Calcium 9.2, Total Bilirubin 0.8, Aspartate Amino Transf (AST/SGOT) 27, Alanine Aminotransferase (ALT/SGPT) 38, Alkaline Phosphatase 101, Lactate Dehydrogenase 256, C-Reactive Protein High Sensitivity 3.72, Total Protein 8.2, Albumin 3.8, Beta-Hydroxybutyrate (Chem panel) 0.43, Procalcitonin 0.08, Influenza Type A (RT-PCR) [Pending], Influenza Type A Antigen NEGATIVE, Influenza Type B Antigen NEGATIVE, Influenza Type B (RT-PCR) [Pending], SARS-CoV-2 RNA (RT-PCR) Not Detected 10/26/21 19:29: Urine Color YELLOW, Urine Clarity CLEAR, Urine pH 6.0, Urine Specific [place] 1.025, Urine Protein 1+, Urine Glucose (UA) TRACE, Urine Ketones TRACE, Urine Nitrite NEGATIVE, Urine Bilirubin 1+, Urine Urobilinogen 1.0, Urine Leukocyte Esterase NEGATIVE, Urine RBC (Auto) TRACE-I, Urine RBC 0-2, Urine WBC RARE, U rine Crystals PRESENT, Urine Amorphous Sediment RARE NAEEM URATES, Urine Bacteria TRACE, Urine Casts NONE, Urine Mucus SMALL, Urine Culture Indicated CULTURE PENDING 10/26/21 22:14: Glucometer 170 10/27/21 05:44: Glucometer 108 10/27/21 05:45: White Blood Count 6.8, Red Blood Count 5.89, Hemoglobin 16.6, Hematocrit 49, Mean Corpuscular Volume 84, Mean Corpuscular Hemoglobin 28, Mean Corpuscular Hemoglobin Concent 34, Red Cell Distribution Width 12.6, Platelet Count 331, Mean Platelet Volume 9.5, Immature Granulocyte % (Auto) 2, Neutrophils (%) (Auto) 49, Lymphocytes (%) (Auto) 29, Monocytes (%) (Auto) 16, Eosinophils (%) (Auto) 4, Basophils (%) (Auto) 1, Neutrophils # (Auto) 3.4, Lymphocytes # (Auto) 2.0, Monocytes # (Auto) 1.1, Eosinophils # (Auto) 0.3, Basophils # (Auto) 0.1, Immature Granulocyte # (Auto) 0.1, Sodium Level 131, Potassium Level 3.7, Chloride Level 102, Carbon Dioxide Level 19, Anion Gap 10, Blood Urea Nitrogen 11, Creatinine 0.78, Estimat Glomerular Filtration Rate 92, BUN/Creatinine Ratio 14, Glucose Level 100, Calcium Level 8.2, Corrected Calcium 8.8, Total B ilirubin 0.6, Aspartate Amino Transf (AST/SGOT) 22, Alanine Aminotransferase (ALT/SGPT) 31, Alkaline Phosphatase 83, Total Protein 7.0, Albumin 3.3 10/27/21 11:42: Glucometer 129 Discharge Home Medications: Active Scripts Active Glyburide 1.25 Mg Tablet 1.25 Mg PO DAILY Reported Benadryl Allergy (Diphenhydramine HCl) 25 Mg Tablet 25-50 Mg PO Q6H PRN Instructions to patient/family Please see electronic discharge instructions given to patient. LANDEN BRUMFIELD DO Oct 27, 2021 13:08
[2021-10-27 13:42] VITALS: BP 138/77
[2021-10-27 13:46] VITALS: BP 138/77
== END 2021-10-27 12:58 | disposition home or self-care (01) ==
LOC: EDUNIT# 18:51 → ER 18:52 → INTOOBSV 20:01 → 4TH 20:01 → UNDOADMOB 20:01 → 4TH 21:39 → UNDODISOB 10-27 14:55
PROVIDERS: ADMIT Internal Medicine; ATTEND Internal Medicine
DX: R42 Dizziness and giddiness (principal); R50.9 Fever, unspecified; R73.9 Hyperglycemia, unspecified; E87.1 Hypo-osmolality and hyponatremia; I25.2 Old myocardial infarction; R00.0 Tachycardia, unspecified; N39.0 Urinary tract infection, site not specified; Z79.899 Other long term (current) drug therapy; Z79.84 Long term (current) use of oral hypoglycemic drugs; Z87.891 Personal history of nicotine dependence
CPT/HCPCS: 71045; 80053 ×2; 81000; 82010; 82947 ×2; 83036; 83605; 83615; 84145; 85025 ×2; 85610; 85652; 85730; 86141; 87040; 87088; 87635; 87636; 87804; 93005; 93041; 94760; 96374; 97161; 97167; 99284; G0378; 36415

== ENCOUNTER → 2022-02-02 | Outpatient (CLI) | payer MEDICARE, OTHER ==
[~2022-02-02] MED LIST changes: +DIPH25TA65 PO; +GLYB1.253 PO
--- NOTE | 2022-02-02 14:47 | Diagnostic Imaging Report ---
INDICATION: Back pain. COMPARISON: None FINDINGS: Frontal and lateral views of the lumbar spine were obtained. Alignment and vertebral heights are maintained. There is no fracture or destructive process. Moderate multilevel degenerative disease is noted in the lumbar spine. Limited views of the abdomen demonstrate nonobstructive bowel gas pattern. IMPRESSION: 1. No acute fracture or dislocation of the lumbar spine. 2. Moderate multilevel degenerative changes. Dictated by: Dictated on workstation # [id number]
--- NOTE | 2022-02-02 14:59 | Diagnostic Imaging Report ---
INDICATION: Stiff neck. COMPARISON: None FINDINGS: Frontal, lateral, and open-mouth radiographic views of the cervical spine were obtained. Cervical spine is seen down to C7-T1 level on the lateral view. Evaluation of static alignment shows slight reversal of normal lordotic curvature. There is no evidence of jumped facets. Open-mouth view shows normal C1-C2 alignment. Vertebral body heights are maintained. There is no acute fracture. There are moderate multilevel degenerative changes consistent with intervertebral disc height loss with anterior posterior endplate osteophyte formations, as well as multilevel facet arthropathy. Surrounding soft tissue structures are unremarkable. Included portions of the lung apices are clear. IMPRESSION: 1. No acute fracture or dislocation of the cervical spine. 2. Moderate multilevel degenerative changes. Dictated by: Dictated on workstation # [id number]
== END ==
LOC: RAD 12:28
PROVIDERS: ATTEND Internal Medicine
DX: M47.812 Spondylosis without myelopathy or radiculopathy, cervical region (principal); M47.816 Spondylosis without myelopathy or radiculopathy, lumbar region
CPT/HCPCS: 72040; 72100

== ENCOUNTER → 2022-03-22 | Outpatient (CLI) | payer MEDICARE, OTHER ==
--- NOTE | 2022-03-22 16:06 | Diagnostic Imaging Report ---
PROCEDURE: MR imaging cervical spine without contrast. TECHNIQUE: Multiplanar, multisequence MR imaging of the cervical spine was performed without contrast. INDICATION: Neck pain and stiffness. COMPARISON: 02/02/2022. FINDINGS: No acute fracture or dislocation is seen in the cervical spine. There is straightening of the cervical spine. The vertebral body heights and disc spaces are well maintained. The bone marrow signal is unremarkable. No focal osseous lesions. The craniocervical junction is maintained. The cervical spinal cord demonstrates normal intrinsic signal. No epidural collections are seen. The included brainstem and posterior fossa have normal appearance. Multilevel degenerative changes are seen in the cervical spine with posterior disc bulges and uncovertebral arthropathy. C2-C3: Posterior disc bulge and uncovertebral arthropathy results in mild spinal canal narrowing and no right and mild left foraminal narrowing. C3-C4: Posterior disc bulge, uncovertebral arthropathy, and buckling of the ligamentum flavum results in vqmdjuiz-ol-epktae spinal canal stenosis and xdef-us-unuuuldf bilateral foraminal narrowing. C4-C5: Posterior and left subarticular disc bulges and uncovertebral arthropathy results in fips-qu-qvcdyhfe spinal canal narrowing, moderate left lateral recess stenosis, and mild right and qscihdeg-op-dmscmc left foraminal stenosis. C5-C6: Posterior disc bulge, uncovertebral arthropathy, and buckling of the ligamentum flavum results in yltz-tc-ggniszbh spinal canal narrowing and moderate bilateral foraminal stenosis. C6-C7: Posterior disc bulge, uncovertebral arthropathy, and buckling of the ligamentum flavum results in moderate spinal canal stenosis and moderate right and wkmgahcp-ii-mqiyoc left foraminal stenosis. C7-T1: No significant spinal canal or foraminal stenosis. The soft tissues of neck are unremarkable. IMPRESSION: 1. No acute fracture or dislocation of the cervical spine. 2. Multilevel degenerative changes in the cervical spine, greatest at C3-C4, C4-C5, and C6-C7. Dictated by: Dictated on workstation # [id number]
--- NOTE | 2022-03-22 16:11 | Diagnostic Imaging Report ---
PROCEDURE: MRI lumbar spine without contrast. TECHNIQUE: Multiplanar, multisequence MRI of the lumbar spine was performed without contrast. INDICATION: Back pain. COMPARISON: 02/02/2022. FINDINGS: Five lumbar-type vertebral bodies are visualized with the last well-formed disc space designated L5-S1. No acute fracture or dislocation is seen in the lumbar spine. Alignment is anatomic. Vertebral body heights are well-maintained. The bone marrow signal is normal. The conus terminates at the L1 level. No masses are seen associated with the conus or nerve roots of the cauda equina. No epidural collections are identified. Multilevel degenerative changes are seen in the lumbar spine with disc bulges, facet hypertrophy, and buckling of the ligamentum flavum. T12-L1: No significant spinal canal or foraminal stenosis. L1-L2: Facet hypertrophy and buckling of the ligamentum flavum result in mild spinal canal narrowing and mild bilateral foraminal narrowing. L2-L3: Broad-based disc bulge, facet hypertrophy, and buckling of the ligamentum flavum result in moderate spinal canal stenosis and usrq-jj-kzcwrkvd right and moderate left foraminal stenosis. L3-L4: Broad-based disc bulge, facet hypertrophy, and buckling of the ligamentum flavum result in severe spinal canal stenosis and qajvsvpm-og-onbtno bilateral foraminal stenosis. L4-L5: Broad-based disc bulge, facet hypertrophy, and buckling of the ligamentum flavum result in severe spinal canal stenosis and severe right and ffqlsbkr-nw-cwmpsj left foraminal stenosis. L5-S1: Broad-based disc bulge, facet hypertrophy, and buckling of the ligamentum flavum result in mild spinal canal narrowing and krnqduns-fw-xbepcn bilateral foraminal stenosis. Paravertebral soft tissues are unremarkable. IMPRESSION: 1. No acute fracture or dislocation in the lumbar spine. 2. Multilevel degenerative changes in the lumbar spine, greatest at L3-L4 and L4-L5. Dictated by: Dictated on workstation # [id number]
== END ==
LOC: RAD 13:22
PROVIDERS: ATTEND Internal Medicine
DX: M47.816 Spondylosis without myelopathy or radiculopathy, lumbar region (principal); M47.812 Spondylosis without myelopathy or radiculopathy, cervical region; M48.04 Spinal stenosis, thoracic region
CPT/HCPCS: 72141; 72148

== ENCOUNTER → 2023-03-29 | Outpatient (CLI) | payer MEDICARE, OTHER | LOC: CARD 08:47 | PROVIDERS: ATTEND Internal Medicine | DX: R01.1 Cardiac murmur, unspecified (principal) | CPT/HCPCS: 93306 ==